=== PATIENT | female | born 1960 | race Caucasian/White ===

== ENCOUNTER 2018-03-30 14:03 | Observation (INO) ==
--- NOTE | 2018-03-30 14:08 | Emergency Department Note ---
Disposition Clinical Impression: Chest pain, Dyspnea Disposition: Admitted As Inpatient Condition: Good General Adult HPI - General Stated complaint: CP Time Seen by Provider: 03/30/18 14:07 - Related Data Home Medications Medication Instructions Recorded Confirmed ARIPiprazole [Abilify] 10 mg PO DAILY 03/30/18 03/30/18 Albuterol Sulfate [Ventolin Hfa] 2 puff IH Q4H PRN 03/30/18 03/30/18 Aspirin [Adult Aspirin] 81 mg PO DAILY 03/30/18 03/30/18 Atorvastatin [Lipitor] 40 mg PO HS 03/30/18 03/30/18 BuPROPion XL (24 HR) [Wellbutrin 300 mg PO DAILY 03/30/18 03/30/18 XL] Celecoxib [Celebrex] 200 mg PO DAILY 03/30/18 03/30/18 Cholecalciferol (Vitamin D3) 10,000 unit PO QWEEK 03/30/18 03/30/18 [Vitamin D3] Escitalopram [Lexapro] 20 mg PO DAILY 03/30/18 03/30/18 Ferrous Sulfate [Iron] 325 mg PO DAILY 03/30/18 03/30/18 Furosemide [Lasix] 40 mg PO BID 03/30/18 03/30/18 Losartan Potassium [Cozaar] 100 mg PO DAILY 03/30/18 03/30/18 Mv,Fe,Min/Lutein [A Thru Z Select 1 tab PO DAILY 03/30/18 03/30/18 Women's Tablet] Omeprazole [PriLOSEC] 40 mg PO DAILY 03/30/18 03/30/18 RX: Metformin HCl 500 mg PO BID 03/30/18 03/30/18 Spironolactone [Aldactone] 25 mg PO DAILY 03/30/18 03/30/18 Topiramate [Topamax] 25 mg PO BID 03/30/18 03/30/18 Allergies Allergy/AdvReac Type Severity Reaction Status Date / Time No Known Allergies Allergy Verified 03/30/18 15:18 Past Medical History - Past Medical History Medical history: Reports: CHF, diabetes, hyperlipidemia, hypertension Psychiatric history: Reports: no psych history - Social History Smoking Status: Former smoker Smokeless Tobacco Status: No Alcohol use: Reports: none Drug use: Reports: none Course Vital Signs Pulse Rate 79 03/30/18 14:13 Respiratory Rate 20 03/30/18 14:13 Blood Pressure 153/69 03/30/18 14:13 O2 Sat by Pulse Oximetry 98 03/30/18 14:13 Temperature 98.1 F 03/31/18 11:51 Pulse Rate 89 03/31/18 11:51 Respiratory Rate 16 03/31/18 11:51 Blood Pressure 121/74 03/31/18 11:51 O2 Sat by Pulse Oximetry 95 03/31/18 11:51 Oxygen Delivery Oxygen Delivery Room Air Medical Decision Making - Lab Data Result diagrams: 03/31/18 02:56 03/30/18 14:23 Lab Results 03/30/18 03/30/18 03/30/18 Range/Units 14:23 14:23 14:23 WBC 9.3 (4.3-11.1) K/mcL RBC 4.19 (3.82-4.97) M/mcL Hgb 13.0 (11.5-15.4) g/dL Hct 39.0 (35.3-44.9) % MCV 93.1 (83.0-100.0) fL MCH 31.0 (28.0-33.3) pg MCHC 33.3 (31.6-35.5) g/dL RDW 13.9 (11.5-14.5) % Plt Count 202 (140-400) K/mcL MPV 11.0 (9.4-12.4) fL Immature Gran % 0.6 (0-4) % Seg Neutrophils % 72.2 % Lymphocytes % 17.7 % Monocytes % 5.8 % Eosinophils % 3.2 % Basophils % 0.5 % Neutrophils # 6.7 (1.6-8.9) K/mcL Lymphocytes # 1.6 (0.6-4.6) K/mcL Monocytes # 0.5 (0.0-1.3) K/mcL Eosinophils # 0.3 (0.0-0.6) K/mcL Basophils # 0.1 (0.0-0.2) K/mcL Sodium 141 (136-145) mEq/L Potassium 3.8 (3.5-5.1) mEq/L Chloride 104 (98-107) mEq/L Carbon Dioxide 28 (23-29) mEq/L BUN 12 (6-20) mg/dL Creatinine 0.72 (0.60-1.20) mg/dL Est GFR ( Amer) > 60 (> 60) Est GFR (Non-Af Amer) > 60 (> 60) BUN/Creatinine Ratio 17 (6-26) Glucose 107 H (70-105) mg/dL Calculated Osmolality 292 (280-300) Calcium 9.4 (8.6-10.3) mg/dL Troponin I 0.05 H* (< 0.04) ng/mL B-Natriuretic Peptide 28 (Less than 100) pg/mL Attestation Statement - Attestation Attestation: I examined this patient and my medical decision-making was reviewed with the Resident Physician. I agree with the documented findings, disposition and treatment plan as described except to the extent set forth below. [id number] time provided Patient arrives by EMS complaining of chest pain that has now resolved. She appears mildly dyspneic on exam. I evaluated this patient immediately upon arrival in conjunction with the resident physician Dr. Wheeler
[2018-03-30] MEDS ORDERED: Aspirin 325 MG TABLET PO ONE (14:14)
--- NOTE | 2018-03-30 14:25 | Emergency Department Note ---
Disposition Clinical Impression: Chest pain Qualifiers: Chest pain type: unspecified Qualified Code(s): R07.9 - Chest pain, unspecified Dyspnea Qualifiers: Dyspnea type: unspecified Qualified Code(s): R06.00 - Dyspnea, unspecified Disposition: Admitted As Inpatient Condition: Good Instructions: Chest Pain (ED) Referrals: Bryan Mendez MD [Primary Care Provider] - Forms: ED Satisfaction Letter Time of Disposition: 15:50 Chest Pain HPI - General Chief Complaint: ED Chest Pain Stated Complaint: CP Time Seen by Provider: 03/30/18 14:07 Source: patient, EMS Mode of arrival: EMS Limitations: no limitations Vital Signs Reviewed: Yes Nursing Notes Reviewed: Yes - History of Present Illness HPI Narrative: Patient is a 57 year old female with past medical history of hypertension, hyperlipidemia, COPD, diabetes. She presents today due to chest pain and shortness of breath. She states that she has baseline shortness of breath with COPD but has had worsening shortness breath over the past several days. She currently only takes Ventolin inhaler as needed. Is not on any current steroid inhalers. She states that over the past few days, she has had intermittent chest discomfort, mainly with exertion that she describes as a left-sided dull ache with no radiation. Rated a 3 or 4 at its maximum intensity. Denies any other associated nausea, vomiting, fevers, diarrhea, abdominal pain. She does admit to bilateral lower extremity leg swelling with weeping but no redness or calf pain, no popliteal fossa pain. Denies any history of DVT or PE. She denies any previous history of DE or stents. She has reportedly had a stress test in the past about 2 years ago that was negative but has not had a stress test or heart catheter since. She arrived today via EMS due to chest discomfort and shortness of breath. She states that she was on her way home from chronic pain management office due to chronic back pain. Currently home, she started developing same left-sided chest pain that lasted about 20 minutes and then went away. She did not take any aspirin or nitroglycerin prior to arrival. She has not had any return of her pain since. EMS did not administer any medications. Vitals were stable upon arrival. - Related Data Home Medications Medication Instructions Recorded Confirmed ARIPiprazole [Abilify] 10 mg PO DAILY 03/30/18 03/30/18 Albuterol Sulfate [Ventolin Hfa] 2 puff IH Q4H PRN 03/30/18 03/30/18 Aspirin [Adult Aspirin] 81 mg PO DAILY 03/30/18 03/30/18 Atorvastatin [Lipitor] 40 mg PO HS 03/30/18 03/30/18 BuPROPion XL (24 HR) [Wellbutrin 300 mg PO DAILY 03/30/18 03/30/18 XL] Celecoxib [Celebrex] 200 mg PO DAILY 03/30/18 03/30/18 Cholecalciferol (Vitamin D3) 10,000 unit PO QWEEK 03/30/18 03/30/18 [Vitamin D3] Escitalopram [Lexapro] 20 mg PO DAILY 03/30/18 03/30/18 Ferrous Sulfate [Iron] 325 mg PO DAILY 03/30/18 03/30/18 Furosemide [Lasix] 40 mg PO BID 03/30/18 03/30/18 Losartan Potassium [Cozaar] 100 mg PO DAILY 03/30/18 03/30/18 Metformin HCl 500 mg PO BID 03/30/18 03/30/18 Mv,Fe,Min/Lutein [A Thru Z Select 1 tab PO DAILY 03/30/18 03/30/18 Women's Tablet] Omeprazole [PriLOSEC] 40 mg PO DAILY 03/30/18 03/30/18 Spironolactone [Aldactone] 25 mg PO DAILY 03/30/18 03/30/18 Topiramate [Topamax] 25 mg PO BID 03/30/18 03/30/18 Allergies Allergy/AdvReac Type Severity Reaction Status Date / Time No Known Allergies Allergy Verified 03/30/18 15:18 All systems ED: reviewed and negative except as stated. Constitutional: Denies: fever Cardiovascular: Reports: chest pain Respiratory: Reports: cough, dyspnea, wheezes Gastrointestinal: Denies: abdominal pain, nausea, vomiting, diarrhea Genitourinary: Denies: urgency, dysuria Neurological: Denies: headache, weakness, numbness, paresthesias Chest Pain PMH - Past Medical History Medical history: Reports: CHF, diabetes, hyperlipidemia, hypertension Psychiatric history: Reports: no psych history - Social History Smoking Status: Former smoker Alcohol use: Reports: none Drug use: Reports: none Course Course Narrative: Vitals stable. Physical exam shows lungs clear to auscultation, no reproducible chest discomfort. Abdomen soft and nontender. Lower 70s are edematous and wee ping but no signs of any cellulitis. No calf pain or popliteal fossa pain. Patient has a heart score 5 assuming that troponin will be negative. We will perform CBC, BMP, troponin, chest x-ray. EKG shows normal sinus rhythm with T- wave inversion in V2 that is present on old EKG. Otherwise no acute ST elevation or depression. 15:08 chest x-ray negative for any acute cardiopulmonary process. Labs show positive troponin 0.05. Patient was even aspirin. Again, patient has no current chest pain or shortness of breath. Heart score is 5. We will admit the patient for further care. Chest X-Ray 03/30/18 14:13 IMPRESSION: No acute process. D/ / Zachary Nance MD / Zachary Nance MD Interpreting Provider: Zachary Nance MD Vital Signs Pulse Rate 79 03/30/18 14:13 Respiratory Rate 20 03/30/18 14:13 Blood Pressure 153/69 03/30/18 14:13 O2 Sat by Pulse Oximetry 98 03/30/18 14:13 Temperature 99.0 F 03/30/18 15:20 Pulse Rate 81 03/30/18 15:20 Respiratory Rate 20 03/30/18 15:20 Blood Pressure 153/69 03/30/18 15:20 O2 Sat by Pulse Oximetry 100 03/30/18 15:20 Oxygen Delivery Oxygen Delivery Nasal Cannula Chest Pain - MDM Narrative Medical decision making narrative: Vitals stable. Physical exam shows lungs clear to auscultation, no reproducible chest discomfort. Abdomen soft and nontender. Lower 70s are edematous and weeping but no signs of any cellulitis. No calf pain or popliteal fossa pain. Patient has a heart score 5 assuming that troponin will be negative. We will perform CBC, BMP, troponin, chest x-ray. EKG shows normal sinus rhythm with T- wave inversion in V2 that is present on old EKG. Otherwise no acute ST elevation or depression. 15:08 chest x-ray negative for any acute cardiopulmonary process. Labs show positive troponin 0.05. Patient was even aspirin. Again, patient has no current chest pain or shortness of breath. Heart score is 5. We will admit the patient for further care. - Medical Records Medical records reviewed: Yes I reviewed the patient's medical records. - Lab Data Lab results reviewed: Yes I reviewed the patient's lab results. Result diagrams: 03/30/18 14:23 03/30/18 14:23 Lab Results 03/30/18 03/30/18 03/30/18 Range/Units 14:23 14:23 14:23 WBC 9.3 (4.3-11.1) K/mcL RBC 4.19 (3.82-4.97) M/mcL Hgb 13.0 (11.5-15.4) g/dL Hct 39.0 (35.3-44.9) % MCV 93.1 (83.0-100.0) fL MCH 31.0 (28.0-33.3) pg MCHC 33.3 (31.6-35.5) g/dL RDW 13.9 (11.5-14.5) % Plt Count 202 (140-400) K/mcL MPV 11.0 (9.4-12.4) fL Immature Gran % 0.6 (0-4) % Seg Neutrophils % 72.2 % Lymphocytes % 17.7 % Monocytes % 5.8 % Eosinophils % 3.2 % Basophils % 0.5 % Neutrophils # 6.7 (1.6-8.9) K/mcL Lymphocytes # 1.6 (0.6-4.6) K/mcL Monocytes # 0.5 (0.0-1.3) K/mcL Eosinophils # 0.3 (0.0-0.6) K/mcL Basophils # 0.1 (0.0-0.2) K/mcL Sodium 141 (136-145) mEq/L Potassium 3.8 (3.5-5.1) mEq/L Chloride 104 (98-107) mEq/L Carbon Dioxide 28 (23-29) mEq/L BUN 12 (6-20) mg/dL Creatinine 0.72 (0.60-1.20) mg/dL Est GFR ( Amer) > 60 (> 60) Est GFR (Non-Af Amer) > 60 (> 60) BUN/Creatinine Ratio 17 (6-26) Glucose 107 H (70-105) mg/dL Calculated Osmolality 292 (280-300) Calcium 9.4 (8.6-10.3) mg/dL Troponin I 0.05 H* (< 0.04) ng/mL B-Natriuretic Peptide 28 (Less than 100) pg/mL - Radiology Data Radiology results reviewed: Yes I reviewed the patient's radiology results. - EKG Data EKG attestation: Yes I reviewed and interpreted this EKG. EKG results narrative: 03/30/2018 at 14:16. Normal sinus rhythm. Rate 79. GA 178. QRS 94. QTC 446. No axis. No acute ST elevation or depression. T-wave inversion in V1, V2 that are present on old EKG on 09/21/2017. Heart Score - Score History: Moderately Suspicious EKG: Non Specific repolarisation Disturbance Age: 45-65 Risk Factors: Equal/Greater than 3 risk factor or history of atherosclerotic disease Troponin: Less than normal limit HEART Score Total: 5 S.B.A.R. - Tian.[email or web address] Carlos Situation: Demographics, MOA Background: Presenting Complaint, Relevant PMH, Meds, & Allergies Assessment: Vital Signs, Course and respsone to treatment, Exam Concerns, Patient/Family Expectation, Pertinant Lab Results Recommendation: Barrier(s) to disposition, Recommendation based on pending studies, treatments, or consults S.B.A.R. Report Given to: Dr. Taylor Monterroso Repor Time: 15:50
[2018-03-30 14:50] LABS: Basophils # 0.1 K/mcL (0.0-0.2); Basophils % 0.5 %; Eosinophils # 0.3 K/mcL (0.0-0.6); Eosinophils % 3.2 %; Immature Granulocytes % 0.6 % (0-4); Lymphocytes # 1.6 K/mcL (0.6-4.6); Lymphocytes % 17.7 %; Mean Corpuscular HGB Conc 33.3 g/dL (31.6-35.5); Mean Corpuscular Volume 93.1 fL (83.0-100.0); Monocytes # 0.5 K/mcL (0.0-1.3); Monocytes % 5.8 %; Neutrophils # 6.7 K/mcL (1.6-8.9); Platelet Count 202 K/mcL (140-400); Red Blood Count 4.19 M/mcL (3.82-4.97); Red Cell Distribution Width 13.9 % (11.5-14.5); Segmented Neutrophils % 72.2 %
[2018-03-30 15:01] LABS: BUN/Creatinine Ratio 17 (6-26); Blood Urea Nitrogen 12 mg/dL (6-20); Calcium 9.4 mg/dL (8.6-10.3); Carbon Dioxide 28 mEq/L (23-29); Chloride 104 mEq/L (98-107); Glucose 107 mg/dL (70-105); Osmolality,Calculated 292 (280-300); Potassium 3.8 mEq/L (3.5-5.1); Sodium 141 mEq/L (136-145); eGFR For Non-African Americans > 60 (> 60)
[2018-03-30 15:03] LABS: Troponin I 0.05 ng/mL (< 0.04)
--- NOTE | 2018-03-30 16:14 | Electrocardiograph Report ---
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
[2018-03-30] MEDS ORDERED: Acetaminophen 325 MG TABLET PO PRN (17:13)
[2018-03-30] MEDS ORDERED: Naloxone 0.4 MG/ML INJ IVP PRN (17:13)
[2018-03-30] MEDS ORDERED: Albuterol 2.5 MG/3 ML NEBULIZER IH PRN (17:13)
[2018-03-30] MEDS ORDERED: 0.9 % Sodium Chloride 1,000 ML IVC SCH (17:15)
--- NOTE | 2018-03-30 17:18 | Internal Med History&Physical ---
Date of Encounter: 03/30/18 Time of Encounter: 17:17 Internal Medicine - H&P: HPI Chief complaint: SOB and CP Admitted From: Home Plans for Post Hospital Care: Home History of present illness: Ms. Díaz is a 57 year old female with past medical history of COPD, morbid obesity, sleep apnea, edema, who presents with progressive SOB and ocugh. Pt states she has been progressively SOB for weeks to months. States she was at urgent care at [place] last week and was mnaaged and sent home to f/u out pt with her PCP. Pt states she is on lasix and Spirinolactone and had been complaint on both medications She also states she had been complaint with QHS BiPAP which she uses with oxygen. She does report having low grade fever at home. Denies having any sick contacts. Sister at bedside states her legs have been draining fluid form being so swollen. Pt admits to having orthopnea. She denies prior hx of AK or CAd that she is aware of but states she had been told once before that she has CHF. In ED WBC WNL. D dimer 960. BMP wnl. Troponin 0.05. EKG shows Chest x ray shows no acute distress. Past Med Surg Social Fam HX - Past Medical History Medical history: CHF, diabetes, hyperlipidemia, hypertension Psychiatric history: no psych history - Past Surgical History Additional surgical history: left arm - Social History Smoking Status: Former smoker Smokeless Tobacco Status: No Alcohol use: none Drug use: none - Family History Mother Living Status: Cause of : AK Hx Family Cardiac Disorders: Yes (AK, CHF) Hx Family Cancer: Yes (Colon, breast) Hx Family Endocrine Disorder: Yes (Diabetes) Hx Family Medical Disorders: Yes (HTN) Father Living Status: Cause of : liver cancer Hx Family Cancer: Yes (liver) Hx Family Endocrine Disorder: Yes (Diabetes) Hx Family Medical Disorders: Yes (HTN) Internal Medicine - H&P: Meds ARIPiprazole [Abilify] 10 mg PO DAILY 03/30/18 [History] Albuterol Sulfate [Ventolin Hfa] 2 puff IH Q4H PRN 03/30/18 [History] Aspirin [Adult Aspirin] 81 mg PO DAILY 03/30/18 [History] Atorvastatin [Lipitor] 40 mg PO HS 03/30/18 [History] BuPROPion XL (24 HR) [Wellbutrin XL] 300 mg PO DAILY 03/30/18 [History] Celecoxib [Celebrex] 200 mg PO DAILY 03/30/18 [History] Cholecalciferol (Vitamin D3) [Vitamin D3] 10,000 unit PO QWEEK 03/30/18 [History] Escitalopram [Lexapro] 20 mg PO DAILY 03/30/18 [History] Ferrous Sulfate [Iron] 325 mg PO DAILY 03/30/18 [History] Furosemide [Lasix] 40 mg PO BID 03/30/18 [History] Losartan Potassium [Cozaar] 100 mg PO DAILY 03/30/18 [History] Metformin HCl 500 mg PO BID 03/30/18 [History] Mv,Fe,Min/Lutein [A Thru Z Select Women's Tablet] 1 tab PO DAILY 03/30/18 [History] Omeprazole [PriLOSEC] 40 mg PO DAILY 03/30/18 [History] Spironolactone [Aldactone] 25 mg PO DAILY 03/30/18 [History] Topiramate [Topamax] 25 mg PO BID 03/30/18 [History] Allergy/AdvReac Type Severity Reaction Status Date / Time No Known Allergies Allergy Verified 03/30/18 15:18 All Systems PM: A 10-system review of systems was performed and is negative for pertinent findings except as documented above in the HPI. - Constitutional Vitals: Temp Pulse Resp BP Pulse Ox 99.0 F 81 18 130/68 100 03/30/18 15:20 03/30/18 15:20 03/30/18 16:16 03/30/18 16:16 03/30/18 15:20 General appearance: Present: A&O X 3, morbidly obese Exam: mild distress. - Head Head exam: Present: atraumatic, normocephalic - Eye Eye exam: Present: PERRL, conjuntiva pink, sclera anicteric Pupils: Present: PERRL - Neck Neck exam general surgery: Present: supple, trachea midline. Absent: lymphadenopathy - Respiratory Respiratory exam: Present: CTAB. Absent: accessory muscle use, rales, rhonchi, wheezes - Cardiovascular Cardiovascular exam: Present: RRR, +S1, +S2. Absent: diastolic murmur, gallop, rubs, systolic murmur - GI/Abdominal GI/Abdominal exam: Present: normal bowel sounds, soft, no peritoneal signs. Absent: distended, tenderness - Extremities Exam Extremities exam: Present: pedal edema, warm, radial pulses palpable and symmetrical. Absent: calf tenderness, cyanotic - Neurological Exam Neurological exam: Present: CN II-XII intact, oriented X3, no focal deficits. Absent: pronater drift, facial droop, speech deficit - Skin Skin exam: Present: dry, intact Internal Med - H&P Results - Labs CBC & Chem 7: 03/30/18 14:23 03/30/18 14:23 Labs: Short CBC 03/30/18 Range/Units 14:23 WBC 9.3 (4.3-11.1) K/mcL Hgb 13.0 (11.5-15.4) g/dL Hct 39.0 (35.3-44.9) % Plt Count 202 (140-400) K/mcL Neutrophils # 6.7 (1.6-8.9) K/mcL BMP 03/30/18 14:23 Sodium 141 Potassium 3.8 Chloride 104 Carbon Dioxide 28 BUN 12 Creatinine 0.72 Glucose 107 H Calcium 9.4 Cardiac Enzymes 03/30/18 Range/Units 14:23 Troponin I 0.05 H* (< 0.04) ng/mL - Impressions ITS Impressions Chest X-Ray 03/30/18 14:13 IMPRESSION: No acute process. D/ / Zachary Nance MD / Zachary Nance MD Interpreting Provider: Zachary Nance MD - Assessment and plan (1) Volume overload Current Visit: Yes Status: Acute Assessment and plan: Hypervolemia posisbly due to CHF, ? pulmmonary HTN. Will check echo in am. Will place on Lasix 40 mg IV BID. Will check daily weights and strict I and O's. Will place on fluid restriction. Qualifiers: Qualified Code(s): E87.70 - Fluid overload, unspecified (2) Chest pain Current Visit: Yes Status: Acute Assessment and plan: Pt states FLOR was her main complaint and denies having any significant chest. In fact she reports chest discomfort as mild. Will cycle pt's troponin. Will place on ASA daily and nitro SL prn. Qualifiers: Chest pain type: unspecified Qualified Code(s): R07.9 - Chest pain, unspecified (3) Morbid (severe) obesity due to excess calories Current Visit: Yes Status: Acute Assessment and plan: Weight loss such as diet modification and exercise recommended (4) Former smoker Current Visit: Yes Status: Acute Assessment and plan: Pt states she quit 4 years ago. (5) COPD (chronic obstructive pulmonary disease) Current Visit: Yes Status: Acute Assessment and plan: Will place on albuterol scheduled and prn. Will place on steroids. Qualifiers: Qualified Code(s): J44.9 - Chronic obstructive pulmonary disease, unspecified - Time Spent With Patient Total time spent is greater than 50% in coordination of care (as documented) at patient's floor/unit and/or counseling patient: 25 - 35 minutes
[2018-03-30] MEDS: MethylPREDNISolone 40 MG/ML VIAL IVP SCH (18:24)
[2018-03-30] MEDS ORDERED: Ondansetron 4 MG/2 ML VIAL IVP PRN (19:35)
[2018-03-30] MEDS ORDERED: Nitroglycerin 0.4 MG TAB.SUBL SL PRN (19:44)
[2018-03-30] MEDS: Furosemide 40 MG/4 ML VIAL IVP SCH (21:16)
[2018-03-30] MEDS: *HR* Metformin 500 MG TABLET PO SCH (21:16)
[2018-03-30] MEDS: Cholecalciferol (D-3) 1,000 UNIT TABLET PO SCH (21:16)
[2018-03-30] MEDS: Topiramate 25 MG TABLET PO SCH (21:16)
[2018-03-30] MEDS: Ipratropium/Albuterol Neb 3 ML IH SCH (22:59)
[2018-03-31 03:33] LABS: Basophils % 0.2 %; Eosinophils % 0.1 %; Hematocrit 42.3 % (35.3-44.9); Hemoglobin 13.9 g/dL (11.5-15.4); Immature Granulocytes % 1.9 % (0-4); Lymphocytes # 0.8 K/mcL (0.6-4.6); Lymphocytes % 8.2 %; Mean Corpuscular HGB Conc 32.9 g/dL (31.6-35.5); Mean Corpuscular Hemoglobin 30.7 pg (28.0-33.3); Mean Corpuscular Volume 93.4 fL (83.0-100.0); Mean Platelet Volume 11.2 fL (9.4-12.4); Monocytes # 0.1 K/mcL (0.0-1.3); Monocytes % 1.2 %; Neutrophils # 8.1 K/mcL (1.6-8.9); Platelet Count 223 K/mcL (140-400); Red Blood Count 4.53 M/mcL (3.82-4.97); Red Cell Distribution Width 13.7 % (11.5-14.5); Segmented Neutrophils % 88.4 %
[2018-03-31] MEDS: Ipratropium/Albuterol Neb 3 ML IH SCH ×4 (03:44→23:26)
[2018-03-31] MEDS: *HR* Enoxaparin 40 MG/0.4 ML SYRINGE SQ SCH (05:22)
[2018-03-31] MEDS: MethylPREDNISolone 40 MG/ML VIAL IVP SCH ×2 (05:22→17:59)
[2018-03-31] MEDS: *HR* Metformin 500 MG TABLET PO SCH ×2 (08:16→17:58)
[2018-03-31] MEDS: Furosemide 40 MG/4 ML VIAL IVP SCH ×2 (08:16→17:59)
[2018-03-31] MEDS: Spironolactone 25 MG TABLET PO SCH (08:17)
[2018-03-31] MEDS: Aspirin 81 MG TAB.CHEW PO SCH (08:17)
[2018-03-31] MEDS: ARIPiprazole 10 MG TABLET PO SCH (08:17)
[2018-03-31] MEDS: Celecoxib 200 MG CAPSULE PO SCH (08:18)
[2018-03-31] MEDS: BuPROPion XL (24 HR) 150 MG TABLET PO SCH (08:19)
[2018-03-31] MEDS: Nicotine 7 MG PATCH.TD24 TD SCH (08:19)
[2018-03-31] MEDS: Topiramate 25 MG TABLET PO SCH ×2 (08:19→22:02)
[2018-03-31] MEDS: Cholecalciferol (D-3) 1,000 UNIT TABLET PO SCH (08:19)
[2018-03-31] MEDS ORDERED: Azithromycin 250 MG TABLET PO SCH (09:00)
--- NOTE | 2018-03-31 18:55 | Internal Med Progress Note ---
Hospitalist Progress Note - Encounter Date of Encounter: 03/31/18 Time of Encounter: 18:53 - Subjective Interval History: Pt states breathing better today. She denies chest pain. She is afebrile. She reports occasional cough. Positive LE edema. - Exam Vitals: Temp Pulse Resp BP Pulse Ox 98.7 F 92 16 118/71 97 03/31/18 16:17 03/31/18 16:17 03/31/18 16:17 03/31/18 16:17 03/31/18 16:17 Exam: General appearance: Present: A&O X 3, morbidly obese Exam: mild distress. - Head Head exam: Present: atraumatic, normocephalic - Eye Eye exam: Present: PERRL, conjuntiva pink, sclera anicteric Pupils: Present: PERRL - Neck Neck exam general surgery: Present: supple, trachea midline. Absent: lymphadenopathy - Respiratory Respiratory exam: Present: CTAB. Absent: accessory muscle use, rales, rhonchi, wheezes - Cardiovascular Cardiovascular exam: Present: RRR, +S1, +S2. Absent: diastolic murmur, gallop, rubs, systolic murmur - GI/Abdominal GI/Abdominal exam: Present: normal bowel sounds, soft, no peritoneal signs. Absent: distended, tenderness - Extremities Exam Extremities exam: Present: pedal edema, warm, radial pulses palpable and symmetrical. Absent: calf tenderness, cyanotic - Neurological Exam Neurological exam: Present: CN II-XII intact, oriented X3, no focal deficits. Absent: pronater drift, facial droop, speech deficit - Skin Skin exam: Present: dry, intact - Assessment and Plan (1) Volume overload Current Visit: Yes Status: Acute Assessment and Plan: Hypervolemia possibly due to CHF, ? pulmmonary HTN. Echo Ordered but still pending. Will place on Lasix 40 mg IV BID. Will check daily weights and strict I and O's. Will place on fluid restriction. [facility]ed last night 03/30/2018 (2) Chest pain Current Visit: Yes Status: Acute Assessment and Plan: Pt states FLOR was her main complaint and denies having any significant chest. In fact she reports chest discomfort as mild. Troponin neg x 3. Will place on ASA daily and nitro SL prn. (3) Morbid (severe) obesity due to excess calories Current Visit: Yes Status: Acute Assessment and Plan: Weight loss such as diet modification and exercise recommended (4) Former smoker Current Visit: Yes Status: Acute Assessment and Plan: Pt states she quit 4 years ago. (5) COPD (chronic obstructive pulmonary disease) Current Visit: Yes Status: Acute Assessment and Plan: Will place on albuterol scheduled and prn. Will place on steroids. DVT Prophylaxis: Lovenox - Summary of Assessment and Plan Summary of Assessment and Plan: History of present illness: Dr. Villarreal Ms. Díaz is a 57 year old female with past medical history of COPD, morbid obesity, sleep apnea, edema, who presents with progressive SOB and ocugh. Pt states she has been progressively SOB for weeks to months. States she was at urgent care at [place] last week and was mnaaged and sent home to f/u out pt with her PCP. Pt states she is on lasix and Spirinolactone and had been complaint on both medications She also states she had been complaint with QHS BiPAP which she uses with oxygen. She does report having low grade fever at home. Denies having any sick contacts. Sister at bedside states her legs have been draining fluid form being so swollen. Pt admits to having orthopnea. She denies prior hx of [place] or CAd that she is aware of but states she had been told once before that she has CHF. In ED WBC WNL. D dimer 960. BMP wnl. Troponin 0.05. EKG shows Chest x ray shows no acute distress. - Time Spent with Patient Total time spent is greater than 50% in coordination of care (as documented) at patient's floor/unit and/or counseling patient: less than 15 minutes Plan of Care Discussed with: patient Internal Medicine: Result - Labs CBC & Chem 7: 03/31/18 02:56 03/30/18 14:23 Labs: Short CBC 03/31/18 Range/Units 02:56 WBC 9.2 (4.3-11.1) K/mcL Hgb 13.9 (11.5-15.4) g/dL Hct 42.3 (35.3-44.9) % Plt Count 223 (140-400) K/mcL Neutrophils # 8.1 (1.6-8.9) K/mcL Cardiac Enzymes 03/30/18 03/31/18 03/31/18 Range/Units 20:11 02:56 08:38 Troponin I 0.03 0.03 0.03 (< 0.04) ng/mL - ABG Interpretation ABG results: PT/INR, D-dimer D-Dimer 960 ng/mLFEU (0-500) H 03/30/18 17:25 Consult Discharge Plan - Plan Referrals: Bryan Mendez MD [Primary Care Provider] - 04/08/18 1:30 pm () (1) Volume overload Qualifiers: Qualified Code(s): E87.70 - Fluid overload, unspecified (2) Chest pain Qualifiers: Chest pain type: unspecified Qualified Code(s): R07.9 - Chest pain, unspecified (5) COPD (chronic obstructive pulmonary disease) Qualifiers: Qualified Code(s): J44.9 - Chronic obstructive pulmonary disease, unspecified
[2018-03-31 22:30] LABS: Adenovirus Not Detected (Not Detect); Bordetella Pertussis Not Detected (Not Detect); Chlamydophila pneumoniae Not Detected (Not Detect); Coronavirus 229E Not Detected (Not Detect); Coronavirus HKU1 Not Detected (Not Detect); Coronavirus NL63 Not Detected (Not Detect); Coronavirus OC43 Not Detected (Not Detect); Human Metapneumovirus Not Detected (Not Detect); Human Rhinovirus/Enterovirus Not Detected (Not Detect); Influenza A Subtype 2009 H1 Not Detected (Not Detect); Influenza A Untypeable Not Detected (Not Detect); Influenza B Not Detected (Not Detect); Mycoplasma pneumoniae Not Detected (Not Detect); Parainfluenza Virus 1 Not Detected (Not Detect); Parainfluenza Virus 2 Not Detected (Not Detect); Parainfluenza Virus 3 Not Detected (Not Detect); Parainfluenza Virus 4 Not Detected (Not Detect); Respiratory Syncytial Virus Not Detected (Not Detect)
[2018-03-31] MEDS ORDERED: Perflutren Lipid Microsphere 1.3 ML in 0.9 % Sodium Chloride 8.7 ML IVP ONE (22:55)
[2018-04-01] MEDS: Ipratropium/Albuterol Neb 3 ML IH SCH ×4 (04:22→22:14)
[2018-04-01] MEDS: *HR* Enoxaparin 40 MG/0.4 ML SYRINGE SQ SCH (05:45)
[2018-04-01] MEDS: MethylPREDNISolone 40 MG/ML VIAL IVP SCH ×2 (05:45→17:54)
[2018-04-01] MEDS: Nicotine 7 MG PATCH.TD24 TD SCH (08:16)
[2018-04-01] MEDS: Furosemide 40 MG/4 ML VIAL IVP SCH ×2 (08:21→17:54)
[2018-04-01] MEDS: ARIPiprazole 10 MG TABLET PO SCH (08:22)
[2018-04-01] MEDS: Aspirin 81 MG TAB.CHEW PO SCH (08:22)
[2018-04-01] MEDS: BuPROPion XL (24 HR) 150 MG TABLET PO SCH (08:22)
[2018-04-01] MEDS: Spironolactone 25 MG TABLET PO SCH (08:22)
[2018-04-01] MEDS: Topiramate 25 MG TABLET PO SCH ×2 (08:22→20:58)
[2018-04-01] MEDS: Cholecalciferol (D-3) 1,000 UNIT TABLET PO SCH (08:22)
[2018-04-01] MEDS: Celecoxib 200 MG CAPSULE PO SCH (08:22)
[2018-04-01] MEDS: *HR* Metformin 500 MG TABLET PO SCH ×2 (08:23→17:53)
--- NOTE | 2018-04-01 17:16 | Internal Med Progress Note ---
Hospitalist Progress Note - Encounter Date of Encounter: 04/01/18 Time of Encounter: 17:14 - Subjective Interval History: Pt states breathing better today. She denies chest pain. She is afebrile. She reports occasional cough. Positive LE edema which is slowly improving. Sister at bedside states she is concerned about pt's current mental states and living condition. Sister states pt is depressed all the time and has been since their mother . Sister states that pt is a hoarder and has had [facility] care services set up at home. Sister wants to ensure she continue with [facility] services at discharge. SW already aware and states all services are still currently in place for her. - Exam Vitals: Temp Pulse Resp BP Pulse Ox 99.0 F 84 16 130/76 95 04/01/18 15:49 04/01/18 15:49 04/01/18 15:49 04/01/18 15:49 04/01/18 15:49 Exam: General appearance: Present: A&O X 3, morbidly obese Exam: mild distress. - Head Head exam: Present: atraumatic, normocephalic - Eye Eye exam: Present: PERRL, conjuntiva pink, sclera anicteric Pupils: Present: PERRL - Neck Neck exam general surgery: Present: supple, trachea midline. Absent: lymphadenopathy - Respiratory Respiratory exam: Present: Distant breath sounds and decreased B/L. Absent: accessory muscle use, rales, rhonchi, wheezes - Cardiovascular Cardiovascular exam: Present: RRR, +S1, +S2. Absent: diastolic murmur, gallop, rubs, systolic murmur - GI/Abdominal GI/Abdominal exam: Present: normal bowel sounds, soft, no peritoneal signs. Absent: distended, tenderness - Extremities Exam Extremities exam: Present: pedal edema, warm, radial pulses palpable and symmetrical. Absent: calf tenderness, cyanotic - Neurological Exam Neurological exam: Present: CN II-XII intact, oriented X3, no focal deficits. Absent: pronater drift, facial droop, speech deficit - Skin Skin exam: Present: dry, intact - Assessment and Plan (1) Acute and chronic respiratory failure Current Visit: Yes Status: Acute Assessment and Plan: Possibly due to volume overload of unclear etiology. Significant LE edema which sister claimed was draining fluid from B/L LE. Pt was also requiring oxygen more frequently but only prescribed at night with BiPAP. Pt slowly improving on IV Lasix but still some notable edema on exam. Continue with supplemental oxygen, BiPAP QHS prn, respiratory regimen, and Lasix. Echo reviewed but unrevealing EV/EV echocardiogram w enhance Impressions: LVEF 60%. Normal LV chamber size. Despite the use of Definity contrast, not all LV segments were well visualized. Grossly, LV function appears normal. Mild concentric left ventricular hypertrophy. Mild diastolic dysfunction of the left ventricle. Right ventricle was not well visualized. Grossly, it is normal in size and function. Mild left ventricular diastolic dysfunction. Unable to estimate RVSP due to lack of TR jet. No significant valvular dysfunction. (2) Volume overload Current Visit: Yes Status: Acute Assessment and Plan: Hypervolemia eitiology unclear. DDX includes CHF but echo unrevealing. ? pulmmonary HTN but unable to determine RVSP due to body habitus and is subop timal On Lasix 40 mg IV BID which pt states has been helping. Checking daily weights and strict I and O's. On fluid restriction. Echo EV/EV echocardiogram w enhance Impressions: LVEF 60%. Normal LV chamber size. Despite the use of Definity contrast, not all LV segments were well visualized. Grossly, LV function appears normal. Mild concentric left ventricular hypertrophy. Mild diastolic dysfunction of the left ventricle. Right ventricle was not well visualized. Grossly, it is normal in size and function. Mild left ventricular diastolic dysfunction. Unable to estimate RVSP due to lack of TR jet. No significant valvular dysfunction. (3) Chest pain Current Visit: Yes Status: Acute Assessment and Plan: Pt states FLOR was her main complaint and denies having any significant chest. In fact she reported chest discomfort as mild. Troponin neg x 3. On ASA daily and nitro SL prn. Echo 04/01/2018 EV/EV echocardiogram w enhance Impressions: LVEF 60%. Normal LV chamber size. Despite the use of Definity contrast, not all LV segments were well visualized. Grossly, LV function appears normal. Mild concentric left ventricular hypertrophy. Mild diastolic dysfunction of the left ventricle. Right ventricle was not well visualized. Grossly, it is normal in size and function. Mild left ventricular diastolic dysfunction. Unable to estimate RVSP due to lack of TR jet. No significant valvular dysfunction. (4) Morbid (severe) obesity due to excess calories Current Visit: Yes Status: Acute Assessment and Plan: Weight loss such as diet modification and exercise recommended (5) Former smoker Current Visit: Yes Status: Acute Assessment and Plan: Pt states she quit 4 years ago. (6) COPD (chronic obstructive pulmonary disease) Current Visit: Yes Status: Acute Assessment and Plan: On albuterol scheduled and prn. On steroids. DVT Prophylaxis: Lovenox - Summary of Assessment and Plan Summary of Assessment and Plan: History of present illness: Dr. Villarreal Ms. Díaz is a 57 year old female with past medical history of COPD, morbid ob esity, sleep apnea, edema, who presents with progressive SOB and ocugh. Pt states she has been progressively SOB for weeks to months. States she was at urgent care at [place] last week and was mnaaged and sent home to f/u out pt with her PCP. Pt states she is on lasix and Spirinolactone and had been complaint on both medications She also states she had been complaint with [facility] BiPAP which she uses with oxygen. She does report having low grade fever at home. Denies having any sick contacts. Sister at bedside states her legs have been draining fluid form being so swollen. Pt admits to having orthopnea. She denies prior hx of WI or CAd that she is aware of but states she had been told once before that she has CHF. In ED WBC WNL. D dimer 960. BMP wnl. Troponin 0.05. EKG shows Chest x ray shows no acute distress. - Time Spent with Patient Total time spent is greater than 50% in coordination of care (as documented) at patient's floor/unit and/or counseling patient: less than 15 minutes Internal Medicine: Result - Labs CBC & Chem 7: 03/31/18 02:56 03/30/18 14:23 - ABG Interpretation ABG results: PT/INR, D-dimer D-Dimer 960 ng/mLFEU (0-500) H 03/30/18 17:25 - Impressions Impressions Echocardiogram 03/31/18 19:33 Impressions: LVEF 60%. Normal LV chamber size. Despite the use of Definity contrast, not all LV segments were well visualized. Grossly, LV function appears normal. Mild concentric left ventricular hypertrophy. Mild diastolic dysfunction of the left ventricle. Right ventricle was not well visualized. Grossly, it is normal in size and function. Mild left ventricular diastolic dysfunction. Unable to estimate RVSP due to lack of TR jet. No significant valvular dysfunction. Findings: Study Quality * Technically sub-optimal due to poor echocardiographic windows. ECG Findings * Normal sinus rhythm. Left Ventricle * LVEF 60%. * Normal LV chamber size. * Mild concentric left ventricular hypertrophy. * Despite the use of Definity contrast, not all LV segments were well visualized. Grossly, LV function appears normal. * Mild left ventricular diastolic dysfunction. Right Ventricle * Right ventricle was not well visualized. Grossly, it is normal in size and function. Left Atrium * Normal left atrial size. Right Atrium * Normal right atrial size. Aortic Valve * Aortic valve not well visualized. * No aortic regurgitation. * No aortic stenosis. Mitral Valve * Normal mitral valve structure and function. * No mitral regurgitation. * No mitral stenosis. Tricuspid Valve * No tricuspid regurgitation. * Normal tricuspid valve structure. * Unable to estimate RVSP due to lack of TR jet. Pulmonic Valve * Pulmonic valve not well visualized. Grossly, it appears normal in structure. * No pulmonic regurgitation. Aorta * Normally sized aortic root. Pericardium * The pericardium appears normal. IVC * The IVC is not well evaluated. Pulmonary Artery * Pulmonary artery not well visualized. Consult Discharge Plan - Plan Referrals: Bryan Mendez MD [Primary Care Provider] - 04/08/18 1:30 pm () (2) Volume overload Qualifiers: Qualified Code(s): E87.70 - Fluid overload, unspecified (3) Chest pain Qualifiers: Chest pain type: unspecified Qualified Code(s): R07.9 - Chest pain, unspecified (6) COPD (chronic obstructive pulmonary disease) Qualifiers: Qualified Code(s): J44.9 - Chronic obstructive pulmonary disease, unspecified
--- NOTE | 2018-04-01 17:21 | Electrocardiograph Report ---
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
[2018-04-02] MEDS: Ipratropium/Albuterol Neb 3 ML IH SCH ×4 (03:48→22:38)
[2018-04-02] MEDS: *HR* Enoxaparin 40 MG/0.4 ML SYRINGE SQ SCH (05:57)
[2018-04-02] MEDS: *HR* Metformin 500 MG TABLET PO SCH ×2 (10:02→17:31)
[2018-04-02] MEDS: Aspirin 81 MG TAB.CHEW PO SCH (10:02)
[2018-04-02] MEDS: Spironolactone 25 MG TABLET PO SCH (10:02)
[2018-04-02] MEDS: BuPROPion XL (24 HR) 150 MG TABLET PO SCH (10:02)
[2018-04-02] MEDS: Furosemide 40 MG/4 ML VIAL IVP SCH ×2 (10:02→17:31)
[2018-04-02] MEDS: Topiramate 25 MG TABLET PO SCH ×2 (10:03→20:22)
[2018-04-02] MEDS: Celecoxib 200 MG CAPSULE PO SCH (10:03)
[2018-04-02] MEDS: predniSONE 20 MG TABLET PO SCH (10:03)
[2018-04-02] MEDS: Cholecalciferol (D-3) 1,000 UNIT TABLET PO SCH (10:03)
[2018-04-02] MEDS: ARIPiprazole 10 MG TABLET PO SCH (10:03)
--- NOTE | 2018-04-02 10:04 | Internal Med Progress Note ---
<Oleksandr Beth - Last Filed: 04/02/18 15:41> Hospitalist Progress Note - Encounter Date of Encounter: 04/02/18 Time of Encounter: 10:30 - Subjective Interval History: Patient was examined at the bedside. No acute distress. No chest pain, palpitations or shortness of breath appreciated. She continues to be on spironolactone 25 mg and Lasix 40 mg for her pedal edema. No evidence of congestive heart failure on echocardiogram as far as EF is concerned . Her belly does look a little distended, edematous in her extremities . Denies dysuria, hematuria or any suprapubic tenderness. - Exam Vitals: Temp Pulse Resp BP Pulse Ox 98.0 F 70 16 133/74 98 04/02/18 07:21 04/02/18 07:21 04/02/18 07:21 04/02/18 07:21 04/02/18 07:21 Exam: General appearance: Present: A&O X 3, morbidly obese Exam: mild distress. - Head Head exam: Present: atraumatic, normocephalic - Eye Eye exam: Present: PERRL, conjuntiva pink, sclera anicteric Pupils: Present: PERRL - Neck Neck exam general surgery: Present: supple, trachea midline. Absent: lymphadenopathy - Respiratory Respiratory exam: Present: Distant breath sounds and decreased B/L. Absent: accessory muscle use, rales, rhonchi, wheezes - Cardiovascular Cardiovascular exam: Present: RRR, +S1, +S2. Absent: diastolic murmur, gallop, rubs, systolic murmur - GI/Abdominal GI/Abdominal exam: Present: normal bowel sounds, soft, no peritoneal signs. Absent: distended, tenderness - Extremities Exam Extremities exam: Present: pedal edema, warm, radial pulses palpable and symmetrical. Absent: calf tenderness, cyanotic - Neurological Exam Neurological exam: Present: CN II-XII intact, oriented X3, no focal deficits. Absent: pronater drift, facial droop, speech deficit - Skin Skin exam: Present: dry, intact - Assessment and Plan (1) Volume overload Current Visit: Yes Status: Acute Assessment and Plan: - Etiology unclear for her hypervolemia . Highly unlikely this is CHF because patient's echo was unremarkable without any evidence for any decrease in LVEF, no evidence of any valvular abnormalities, echo did show mild diastolic dysfunction of the left ventricle but that does not explain the progressively increasing weight for the past 1 year despite being on Lasix and Aldactone for years. Right ventricle was not visualized , therefore cannot rule out the possibility of right heart failure. It is unclear to me if patient has any evidence of pulmonary hypertension because RVSP was not determined secondary to body habitus, however, EKG did show evidence of left atrial enlargement which could potentially suggest pulmonary venous hypertension -Patient serum albumin is normal limits (4.7) - Patient is edematous with +2 pitting edema, no evidence of hydrostatic pulmonary edema on chest x-ray. - She is currently on 40 IV Lasix and Aldactone. - UA pending to rule out proteinurea , hepatic panel pending to rule out evidence of liver dysfunction. . (2) Chest pain Current Visit: Yes Status: Acute Assessment and Plan: - Patient was admitted to the hospital for chest pain. Initial workup was negative for any ST-T changes, EKG from 03/31 revealed evidence of left atrial enlargement which could potentially suggest pulmonary venous hypertension, considering the fact that patient has COPD and is a former smoker. Serial tr oponin was negative. - No Hx of any prior cardiac vascular problems no evidence of MD, stents - patient endorses no evidence of chest pain - currently on ASA , Nitro SL PRN (3) COPD (chronic obstructive pulmonary disease) Current Visit: Yes Status: Acute Assessment and Plan: - Patient does not appear to have any exacerbation of COPD. She endorses no worsening cough, productive sputum -X-ray was negative for any pulmonary infiltrates. - On albuterol scheduled and prn. -No indication for steroids at this time and can be discontinued. (4) Former smoker Current Visit: Yes Status: Acute Assessment and Plan: Pt states she quit 4 years ago. (5) Morbid (severe) obesity due to excess calories Current Visit: Yes Status: Acute Assessment and Plan: She was admitted with a BMI of 49.2. Her sister endorses that she has no significant amount of weight in the last one year . - Weight loss such as diet modification and exercise recommended (6) Depression Current Visit: Yes Status: Acute Assessment and Plan: - Patient has a history of depression. Takes Abilify and Lexapro as home meds. -Patient's sister endroses that her depression symptoms have exacerbated since the demise of her mom a year ago. - endorses no change in appetite, endorses no suicidal or homicidal ideation.Sleeps well on her BiPAP, - TSH, free T4, B12 pending. DVT Prophylaxis: Lovenox - Time Spent with Patient Total time spent is greater than 50% in coordination of care (as documented) at patient's floor/unit and/or counseling patient: Internal Medicine: Result - Labs CBC & Chem 7: 03/31/18 02:56 03/30/18 14:23 - ABG Interpretation ABG results: PT/INR, D-dimer D-Dimer 960 ng/mLFEU (0-500) H 03/30/18 17:25 - Impressions Impressions Echocardiogram 03/31/18 19:33 Impressions: LVEF 60%. Normal LV chamber size. Despite the use of Definity contrast, not all LV segments were well visualized. Grossly, LV function appears normal. Mild concentric left ventricular hypertrophy. Mild diastolic dysfunction of the left ventricle. Right ventricle was not well visualized. Grossly, it is normal in size and function. Mild left ventricular diastolic dysfunction. Unable to estimate RVSP due to lack of TR jet. No significant valvular dysfunction. Findings: Study Quality * Technically sub-optimal due to poor echocardiographic windows. ECG Findings * Normal sinus rhythm. Left Ventricle * LVEF 60%. * Normal LV chamber size. * Mild concentric left ventricular hypertrophy. * Despite the use of Definity contrast, not all LV segments were well visualized. Grossly, LV function appears normal. * Mild left ventricular diastolic dysfunction. Right Ventricle * Right ventricle was not well visualized. Grossly, it is normal in size and function. Left Atrium * Normal left atrial size. Right Atrium * Normal right atrial size. Aortic Valve * Aortic valve not well visualized. * No aortic regurgitation. * No aortic stenosis. Mitral Valve * Normal mitral valve structure and function. * No mitral regurgitation. * No mitral stenosis. Tricuspid Valve * No tricuspid regurgitation. * Normal tricuspid valve structure. * Unable to estimate RVSP due to lack of TR jet. Pulmonic Valve * Pulmonic valve not well visualized. Grossly, it appears normal in structure. * No pulmonic regurgitation. Aorta * Normally sized aortic root. Pericardium * The pericardium appears normal. IVC * The IVC is not well evaluated. Pulmonary Artery * Pulmonary artery not well visualized. Consult Discharge Plan - Plan Referrals: Bryan Mendez MD [Primary Care Provider] - 11/16/18 1:30 pm () <Lukas Landers - Last Filed: 04/02/18 17:51> Hospitalist Progress Note - Encounter Date of Encounter: 04/02/18 - Exam Vitals: Temp Pulse Resp BP Pulse Ox 98.6 F 79 15 120/81 95 04/02/18 14:55 04/02/18 14:55 04/02/18 15:55 04/02/18 14:55 04/02/18 15:55 - Assessment and Plan (1) Chest pain Current Visit: Yes Status: Acute (2) Volume overload Current Visit: Yes Status: Acute (3) Morbid (severe) obesity due to excess calories Current Visit: Yes Status: Acute (4) Former smoker Current Visit: Yes Status: Chronic (5) COPD (chronic obstructive pulmonary disease) Current Visit: Yes Status: Acute (6) Depression Current Visit: Yes Status: Acute - Time Spent with Patient Total time spent is greater than 50% in coordination of care (as documented) at patient's floor/unit and/or counseling patient: Plan of Care Discussed with: family Internal Medicine: Result - Labs CBC & Chem 7: 03/31/18 02:56 03/30/18 14:23 Labs: Liver Function 04/02/18 04/02/18 Range/Units 12:02 12:02 Total Bilirubin 0.5 (0.3-1.0) mg/dL Direct Bilirubin 0.1 (0.0-0.2) mg/dL AST < 3 L (13-39) Units/L ALT 61 H (7-52) Units/L Alkaline Phosphatase 96 (34-104) Units/L Albumin 4.7 4.7 (3.5-5.7) g/dL Urine 04/02/18 Range/Units 14:30 Urine Color Yellow (Yellow) Urine Clarity Clear (Clear) Urine pH 6.0 (5.0-8.0) pH Units Ur Specific [place] 1.009 L (1.010-1.025) Urine Protein Negative (Neg-Trace) mg/dL Urine Glucose (UA) Normal (Normal) mg/dL - ABG Interpretation ABG results: PT/INR, D-dimer D-Dimer 960 ng/mLFEU (0-500) H 03/30/18 17:25 - Attending Attestation I examined this patient and my medical decision-making was reviewed with the Resident Physician on 04/02/18. I agree with the documented findings, disposition and treatment plan as described except to the extent set forth below. Ms Díaz is currently admitted for volume overload. She remains moderate to high risk due to potential for worsening clinical status. Ms Díaz is up in room. She is still quite edematous. No fever or chills. No CP or SOB. No GI issues. Exam alert Comfortable Mucus membranes dry Heart reg and not tachy No wheeze or rales Abd soft Edema present bilateral lower extremities I/P 1. Volume overload - Echo does not show L side failure. Consistent more with R side failure versus other process like renal disease. Will get renal studies and thyroid studies 2. Depression Further diagnoses and plan as above. <Oleksandr Beth - Last Filed: 04/02/18 15:41> (1) Volume overload Qualifiers: Qualified Code(s): E87.70 - Fluid overload, unspecified (2) Chest pain Qualifiers: Chest pain type: unspecified Qualified Code(s): R07.9 - Chest pain, unspecified (3) COPD (chronic obstructive pulmonary disease) Qualifiers: Qualified Code(s): J44.9 - Chronic obstructive pulmonary disease, unspecified <Lukas Landers - Last Filed: 04/02/18 17:51> (1) Chest pain Qualifiers: Chest pain type: unspecified Qualified Code(s): R07.9 - Chest pain, unspecified (2) Volume overload Qualifiers: Hypervolemia type: other Qualified Code(s): E87.79 - Other fluid overload (5) COPD (chronic obstructive pulmonary disease) Qualifiers: COPD type: emphysema Emphysema type: panlobular Qualified Code(s): J43.1 - Panlobular emphysema (6) Depression Qualifiers: Depression Type: unspecified Qualified Code(s): F32.9 - Major depressive disorder, single episode, unspecified
[2018-04-02] MEDS: Nicotine 7 MG PATCH.TD24 TD SCH (10:19)
[2018-04-02 13:17] LABS: Alanine Aminotransferase 61 Units/L (7-52); Albumin 4.7 g/dL (3.5-5.7); Albumin/Globulin Ratio 1.4 (1.1-2.2); Alkaline Phosphatase 96 Units/L (34-104); Aspartate Amino Transferase < 3 Units/L (13-39); Bilirubin,Direct 0.1 mg/dL (0.0-0.2); Bilirubin,Indirect 0.4 mg/dL (0.0-1.2); Bilirubin,Total 0.5 mg/dL (0.3-1.0); Globulin 3.4 g/dL (2.4-3.5); Total Protein 8.1 g/dL (6.4-8.9)
[2018-04-02 14:54] LABS: Bilirubin,Urine Negative (Negative); Blood,Urine Negative (Negative); Clarity,Urine Clear (Clear); Color,Urine Yellow (Yellow); Glucose,Urine (UA) Normal (Normal); Ketones,Urine Negative (Negative); Leukocyte Esterase,Urine Trace (Negative); Nitrite,Urine Negative (Negative); Protein,Urine Negative (Neg-Trace); Specific Gravity,Urine 1.009 (1.010-1.025); Urobilinogen,Urine Normal (Normal)
[2018-04-02 14:57] LABS: Bacteria,Urine None Seen per hpf (None-Few); Hyaline Casts,Urine None Seen per lpf (None-Few); RBC,Urine 0-3 per hpf (0-3); Squamous Epithelial Cell,Urine Many per lpf (None-Few)
[2018-04-03 02:46] LABS: Basophils % 0.2 %; Eosinophils # 0.1 K/mcL (0.0-0.6); Eosinophils % 0.5 %; Hematocrit 42.4 % (35.3-44.9); Hemoglobin 13.7 g/dL (11.5-15.4); Immature Granulocytes % 0.9 % (0-4); Lymphocytes # 2.1 K/mcL (0.6-4.6); Lymphocytes % 15.3 %; Mean Corpuscular HGB Conc 32.3 g/dL (31.6-35.5); Mean Corpuscular Hemoglobin 30.4 pg (28.0-33.3); Monocytes # 0.8 K/mcL (0.0-1.3); Monocytes % 5.6 %; Platelet Count 244 K/mcL (140-400); Red Blood Count 4.51 M/mcL (3.82-4.97); Red Cell Distribution Width 14.3 % (11.5-14.5); Segmented Neutrophils % 77.5 %
[2018-04-03 02:47] LABS: Neutrophils # 10.9 K/mcL (1.6-8.9)
[2018-04-03 03:02] LABS: BUN/Creatinine Ratio 34 (6-26); Blood Urea Nitrogen 29 mg/dL (6-20); Calcium 9.7 mg/dL (8.6-10.3); Carbon Dioxide 26 mEq/L (23-29); Chloride 98 mEq/L (98-107); Glucose 173 mg/dL (70-105); Osmolality,Calculated 292 (280-300); Potassium 3.7 mEq/L (3.5-5.1); Sodium 136 mEq/L (136-145); eGFR For Non-African Americans > 60 (> 60)
[2018-04-03] MEDS: Ipratropium/Albuterol Neb 3 ML IH SCH ×2 (04:28→11:04)
[2018-04-03] MEDS: *HR* Enoxaparin 40 MG/0.4 ML SYRINGE SQ SCH (05:10)
--- NOTE | 2018-04-03 08:32 | Internal Med Progress Note ---
Hospitalist Progress Note - Encounter Date of Encounter: 04/03/18 - Subjective Interval History: Patient was examined at the bedside. No acute distress. No chest pain, palpitations or shortness of breath appreciated. She continues to be on spironolactone 25 mg and Lasix 40 mg for her pedal edema. No evidence of congestive heart failure on echocardiogram as far as EF is concerned . Her belly does look a little distended, edematous in her extremities . Denies dysuria, hematuria or any suprapubic tenderness. - Exam Vitals: Temp Pulse Resp BP Pulse Ox 98.2 F 81 16 122/83 97 04/03/18 06:58 04/03/18 06:58 04/03/18 06:58 04/03/18 06:58 04/03/18 06:58 - Assessment and Plan (1) Volume overload Current Visit: Yes Status: Acute (2) Chest pain Current Visit: Yes Status: Acute (3) Depression Current Visit: Yes Status: Acute (4) COPD (chronic obstructive pulmonary disease) Current Visit: Yes Status: Acute (5) Former smoker Current Visit: Yes Status: Chronic (6) Morbid (severe) obesity due to excess calories Current Visit: Yes Status: Acute - Time Spent with Patient Total time spent is greater than 50% in coordination of care (as documented) at patient's floor/unit and/or counseling patient: Internal Medicine: Result - Labs CBC & Chem 7: 04/03/18 02:14 04/03/18 02:14 Labs: Short CBC 04/03/18 Range/Units 02:14 WBC 14.0 H D (4.3-11.1) K/mcL Hgb 13.7 (11.5-15.4) g/dL Hct 42.4 (35.3-44.9) % Plt Count 244 (140-400) K/mcL Neutrophils # 10.9 H (1.6-8.9) K/mcL BMP 04/03/18 02:14 Sodium 136 Potassium 3.7 Chloride 98 Carbon Dioxide 26 BUN 29 H Creatinine 0.85 Glucose 173 H Calcium 9.7 Liver Function 04/02/18 04/02/18 Range/Units 12:02 12:02 Total Bilirubin 0.5 (0.3-1.0) mg/dL Direct Bilirubin 0.1 (0.0-0.2) mg/dL AST < 3 L (13-39) Units/L ALT 61 H (7-52) Units/L Alkaline Phosphatase 96 (34-104) Units/L Albumin 4.7 4.7 (3.5-5.7) g/dL Urine 04/02/18 Range/Units 14:30 Urine Color Yellow (Yellow) Urine Clarity Clear (Clear) Urine pH 6.0 (5.0-8.0) pH Units Ur Specific [place] 1.009 L (1.010-1.025) Urine Protein Negative (Neg-Trace) mg/dL Urine Glucose (UA) Normal (Normal) mg/dL - ABG Interpretation ABG results: PT/INR, D-dimer D-Dimer 960 ng/mLFEU (0-500) H 03/30/18 17:25 Consult Discharge Plan - Plan Referrals: Bryan Mendez MD [Primary Care Provider] - 04/08/18 1:30 pm () (1) Volume overload Qualifiers: Hypervolemia type: other Qualified Code(s): E87.79 - Other fluid overload (2) Chest pain Qualifiers: Chest pain type: unspecified Qualified Code(s): R07.9 - Chest pain, unspecified (3) Depression Qualifiers: Depression Type: unspecified Qualified Code(s): F32.9 - Major depressive disorder, single episode, unspecified (4) COPD (chronic obstructive pulmonary disease) Qualifiers: COPD type: emphysema Emphysema type: panlobular Qualified Code(s): J43.1 - Panlobular emphysema
[2018-04-03] MEDS: BuPROPion XL (24 HR) 150 MG TABLET PO SCH (09:34)
[2018-04-03] MEDS: *HR* Metformin 500 MG TABLET PO SCH (09:34)
[2018-04-03] MEDS: Aspirin 81 MG TAB.CHEW PO SCH (09:34)
[2018-04-03] MEDS: Furosemide 40 MG/4 ML VIAL IVP SCH (09:34)
[2018-04-03] MEDS: Celecoxib 200 MG CAPSULE PO SCH (09:34)
[2018-04-03] MEDS: Spironolactone 25 MG TABLET PO SCH (09:34)
[2018-04-03] MEDS: Topiramate 25 MG TABLET PO SCH (09:34)
[2018-04-03] MEDS: predniSONE 20 MG TABLET PO SCH (09:35)
[2018-04-03] MEDS: Cholecalciferol (D-3) 1,000 UNIT TABLET PO SCH (09:35)
[2018-04-03] MEDS: Nicotine 7 MG PATCH.TD24 TD SCH (09:35)
[2018-04-03] MEDS: ARIPiprazole 10 MG TABLET PO SCH (09:35)
--- NOTE | 2018-04-03 11:50 | Discharge Summary ---
<Lukas Landers - Last Filed: 04/03/18 18:51> Date of Encounter: 04/03/18 - Discharge Diagnosis (1) Volume overload Priority: Primary Status: Acute Qualifiers: Hypervolemia type: other Qualified Code(s): E87.79 - Other fluid overload (2) Chest pain Priority: Secondary Status: Acute Qualifiers: Chest pain type: unspecified Qualified Code(s): R07.9 - Chest pain, unspecified (3) Morbid (severe) obesity due to excess calories Priority: Secondary Status: Chronic (4) Former smoker Priority: Secondary Status: Chronic (5) COPD (chronic obstructive pulmonary disease) Priority: Secondary Status: Chronic Qualifiers: COPD type: emphysema Emphysema type: panlobular Qualified Code(s): J43.1 - Panlobular emphysema (6) Depression Priority: Secondary Status: Chronic Qualifiers: Depression Type: unspecified Qualified Code(s): F32.9 - Major depressive disorder, single episode, unspecified Hospital course: Ms. Díaz is a 57 year old female - Time Spent with Patient Total time spent providing and/or coordinating discharge services: - Discharge Medications Home Medications: ARIPiprazole [Abilify] 10 mg PO DAILY 03/30/18 [History] Albuterol Sulfate [Ventolin Hfa] 2 puff IH Q4H PRN 03/30/18 [History] Aspirin [Adult Aspirin] 81 mg PO DAILY 03/30/18 [History] Atorvastatin [Lipitor] 40 mg PO HS 03/30/18 [History] BuPROPion XL (24 HR) [Wellbutrin Xl] 300 mg PO DAILY 03/30/18 [History] Celecoxib [Celebrex] 200 mg PO DAILY 03/30/18 [History] Cholecalciferol (Vitamin D3) [Vitamin D3] 10,000 unit PO QWEEK 03/30/18 [History] Escitalopram [Lexapro] 20 mg PO DAILY 03/30/18 [History] Ferrous Sulfate [Iron] 325 mg PO DAILY 03/30/18 [History] Furosemide [Lasix] 40 mg PO BID 03/30/18 [History] Losartan Potassium [Cozaar] 100 mg PO DAILY 03/30/18 [History] Metformin HCl 500 mg PO BID 03/30/18 [History] Mv,Fe,Min/Lutein [A Thru Z [employer] Tablet] 1 tab PO DAILY 03/30/18 [History] Omeprazole [PriLOSEC] 40 mg PO DAILY 03/30/18 [History] Spironolactone [Aldactone] 25 mg PO DAILY 03/30/18 [History] Topiramate [Topamax] 25 mg PO BID 03/30/18 [History] Allergies/Adverse Reactions: Allergy/AdvReac Type Severity Reaction Status Date / Time No Known Allergies Allergy Verified 03/30/18 15:18 Date of admission: 03/30/18 15:58 Primary care physician: Bryan Mendez MD Consults: 03/30/18 17:13 Consult to Nurse Navigator [CONS] Routine Comment: 03/30/18 19:31 Consult to Cardiac Rehabilitation-Phase1 [CONS] Routine Comment: Reason for Consult: heart failure Call Completed: Yes Consult to Nurse Navigator [CONS] Routine Comment: - Constitutional Vitals: Temp Pulse Resp BP Pulse Ox 98.0 F 84 16 123/77 97 04/03/18 11:48 04/03/18 11:48 04/03/18 11:48 04/03/18 11:48 04/03/18 11:48 - Patient Status Disposition: Home, Self-Care Condition: Good - Discharge Instructions Instructions: Heart Failure (DC), Chest Pain (DC), Chronic Obstructive Pulmonar y Disease (DC) Follow Up With: Sujit Romero MD [Partnered Physician] - (The office will call you at home with an appointment date and time. ) Bryan Mendez MD [Primary Care Provider] - 04/08/18 1:30 pm () Additional Instructions: -fluid Restriction to less than 2 L per day -Likely due to high salt diet, and high fat diet. - Return to the ED immediately should the leg edema worsen, and /or chest pain, shortness of breath - Attending Attestation I examined this patient and my medical decision-making was reviewed with the Resident Physician on 04/03/18. I agree with the documented findings, disposition and treatment plan as described except to the extent set forth below. Ms Díaz has been admitted for edema and volume overload. EF good and renal function good. She was diuresed with improvement. No CP or SOB at this time. Edema has improved. At this time she is afebrile and ready for discharge home. Exam alert Comfortable Mucus membranes dry Heart reg No wheeze abd soft Plan D/C home today. <Oleksandr Beth - Last Filed: 04/03/18 20:02> - NOTES TO OUTPATIENT PROVIDER Notes to Outpatient Provider: -Follow-up follow-up with cardiology as an outpatient for suspected pulmonary hypertension. - Folow up with PCP. Orders not resulted at time of discharge: Pending orders 04/04/18 04:00 CBC [Complete Blood Count] [HEME] AM 0400 CMP [Comprehensive Metabolic Panel] AM 0400 04/05/18 04:00 CBC [Complete Blood Count] [HEME] AM 0400 CMP [Comprehensive Metabolic Panel] AM 0400 Date of Encounter: 04/03/18 Time of Encounter: 08:45 - Discharge Diagnosis (1) Volume overload Status: Acute Qualifiers: Hypervolemia type: other Qualified Code(s): E87.79 - Other fluid overload (2) Chest pain Status: Acute Qualifiers: Chest pain type: unspecified Qualified Code(s): R07.9 - Chest pain, unspecified (3) Depression Status: Chronic Qualifiers: Depression Type: unspecified Qualified Code(s): F32.9 - Major depressive disorder, single episode, unspecified (4) COPD (chronic obstructive pulmonary disease) Status: Chronic Qualifiers: COPD type: emphysema Emphysema type: panlobular Qualified Code(s): J43.1 - Panlobular emphysema (5) Former smoker Status: Chronic (6) Morbid (severe) obesity due to excess calories Status: Chronic Hospital course: Ms. Díaz is a 57 year old female with past medical history of COPD, morbid obesity, sleep apnea, edema, who presents with progressive SOB and cough. Also endorsed chest pain on admission but her EKG was unremarkable for any ST-T changes , troponin negative, repeat EKG did show some evidence of left atrial enlargement . Patient endorsed that she has been on Lasix and spironolactone secondary to her edematous legs prescribed by her primary care doctor. She and underwent workup for her volume overload status, her echocardiogram was unremarkable with no evidence of any left ventricular dysfunction. There was some mild evidence of pulmonary hypertension and her EKG but her echo did not show a RVSP because of body habitus. Patient did not manifest any exacerbation of COPD during her hospital stay. She was deemed hemodynamically stable for discharge on day 5 of her admission. She has been told to follow-up with cardiology for further evaluation also for pulmonary hypertension. - Time Spent with Patient Total time spent providing and/or coordinating discharge services: Date of admission: 03/30/18 15:58 Primary care physician: Bryan Mendez MD Consults: 03/30/18 17:13 Consult to Nurse Navigator [CONS] Routine Comment: 03/30/18 19:31 Consult to Cardiac Rehabilitation-Phase1 [CONS] Routine Comment: Reason for Consult: heart failure Call Completed: Yes Consult to Nurse Navigator [CONS] Routine Comment: - Constitutional Vitals: Temp Pulse Resp BP Pulse Ox 98.2 F 81 16 122/83 97 04/03/18 06:58 04/03/18 06:58 04/03/18 11:05 04/03/18 06:58 04/03/18 11:05 General appearance: Present: A&O X 3, morbidly obese Exam: General appearance: Present: A&O X 3, morbidly obese Exam: mild distress. - Head Head exam: Present: atraumatic, normocephalic - Eye Eye exam: Present: PERRL, conjuntiva pink, sclera anicteric Pupils: Present: PERRL - Neck Neck exam general surgery: Present: supple, trachea midline. Absent: lymphadenopathy - Respiratory Respiratory exam: Present: Distant breath sounds and decreased B/L. Absent: accessory muscle use, rales, rhonchi, wheezes - Cardiovascular Cardiovascular exam: Present: RRR, +S1, +S2. Absent: diastolic murmur, gallop, rubs, systolic murmur - GI/Abdominal GI/Abdominal exam: Present: normal bowel sounds, soft, no peritoneal signs. Absent: distended, tenderness - Extremities Exam Extremities exam: Present: pedal edema, warm, radial pulses palpable and symmetrical. Absent: calf tenderness, cyanotic - Neurological Exam Neurological exam: Present: CN II-XII intact, oriented X3, no focal deficits. Absent: pronater drift, facial droop, speech deficit - Skin Skin exam: Present: dry, intact
[2018-04-03 11:52] VITALS: BP 123/77
== END 2018-04-03 14:07 | disposition home or self-care (01) ==
LOC: 3BNU 14:03 → EMEROOARM 14:03 → SUATTDRO 15:58 → 3BNU 16:56
PROVIDERS: ADMIT Internal Medicine; ATTEND Internal Medicine

== ENCOUNTER 2019-03-07 15:42 | Inpatient (IN) ==
[2019-03-07 17:01] LABS: Basophils % 0.5 %; Eosinophils # 0.2 K/mcL (0.0-0.6); Eosinophils % 2.2 %; Hematocrit 42.7 % (35.3-44.9); Hemoglobin 13.8 g/dL (11.5-15.4); Immature Granulocytes % 0.4 % (0-4); Lymphocytes # 1.3 K/mcL (0.6-4.6); Lymphocytes % 15.5 %; Mean Corpuscular HGB Conc 32.3 g/dL (31.6-35.5); Mean Corpuscular Hemoglobin 29.8 pg (28.0-33.3); Mean Corpuscular Volume 92.2 fL (83.0-100.0); Mean Platelet Volume 10.5 fL (9.4-12.4); Monocytes # 0.3 K/mcL (0.0-1.3); Monocytes % 3.2 %; Neutrophils # 6.4 K/mcL (1.6-8.9); Platelet Count 206 K/mcL (140-400); Red Blood Count 4.63 M/mcL (3.82-4.97); Red Cell Distribution Width 15.1 % (11.5-14.5); Segmented Neutrophils % 78.2 %; White Blood Count 8.2 K/mcL (4.3-11.1)
[2019-03-07] MEDS ORDERED: Piperacillin/Tazobactam 3.375 GM in 0.9 % Sodium Chloride Mini Bag 100 ML IVPB ONE (17:06)
[2019-03-07] MEDS ORDERED: *HR* OxyCODONE/APAP 5/325 TABLET PO ONE (17:09)
[2019-03-07 17:19] LABS: BUN/Creatinine Ratio 12 (6-26); Blood Urea Nitrogen 9 mg/dL (8-23); Calcium 9.7 mg/dL (8.6-10.3); Carbon Dioxide 30 mEq/L (23-29); Chloride 103 mEq/L (98-107); Glucose 166 mg/dL (70-105); Osmolality,Calculated 296 (280-300); Potassium 3.6 mEq/L (3.5-5.1); Sodium 142 mEq/L (136-145); eGFR For African Americans > 60 (> 60); eGFR For Non-African Americans > 60 (> 60)
[2019-03-07] MEDS ORDERED: Acetaminophen 325 MG TABLET PO PRN (17:57)
[2019-03-07] MEDS ORDERED: Ondansetron ODT 4 MG TAB.RAPDIS SL PRN (17:57)
[2019-03-07] MEDS ORDERED: Naloxone 0.4 MG/ML INJ IVP PRN (17:57)
[2019-03-07] MEDS: *HR* HYDROcodone/Acet 5/325 mg TABLET PO PRN (20:42)
[2019-03-08] MEDS: Piperacillin/Tazobactam 3.375 GM in 0.9 % Sodium Chloride Mini Bag 100 ML IVPB SCH ×4 (01:31→23:13)
[2019-03-08 07:21] LABS: Hematocrit 37.2 % (35.3-44.9); Mean Corpuscular HGB Conc 31.2 g/dL (31.6-35.5); Mean Corpuscular Volume 96.1 fL (83.0-100.0); Mean Platelet Volume 10.6 fL (9.4-12.4); Platelet Count 187 K/mcL (140-400); Red Blood Count 3.87 M/mcL (3.82-4.97); Red Cell Distribution Width 15.6 % (11.5-14.5); White Blood Count 6.7 K/mcL (4.3-11.1)
[2019-03-08 07:26] LABS: Hemoglobin 11.6 g/dL (11.5-15.4)
[2019-03-08 07:42] LABS: BUN/Creatinine Ratio 16 (6-26); Blood Urea Nitrogen 16 mg/dL (8-23); Calcium 8.7 mg/dL (8.6-10.3); Carbon Dioxide 30 mEq/L (23-29); Chloride 106 mEq/L (98-107); Glucose 106 mg/dL (70-105); Magnesium 2.1 mg/dL (1.6-2.6); Osmolality,Calculated 296 (280-300); Potassium 3.5 mEq/L (3.5-5.1); Sodium 142 mEq/L (136-145); eGFR For African Americans > 60 (> 60); eGFR For Non-African Americans 59 (> 60)
[2019-03-08] MEDS ORDERED: *HR* Dextrose 50 % in Water (Syg) 50 ML SYRINGE IVP PRN (08:35)
[2019-03-08] MEDS ORDERED: Dextrose Gel 15 GM/37.5 ML TUBE PO PRN ×2 (08:35)
[2019-03-08] MEDS ORDERED: D5% in Water 1,000 ML IVC PRN (08:35)
[2019-03-08] MEDS: *HR* Enoxaparin 40 MG/0.4 ML SYRINGE SQ SCH (09:27)
[2019-03-08] MEDS: Insulin LISPRO 300 UNITS/3 ML VIAL SQ SCH ×3 (13:22→20:42)
[2019-03-08] MEDS: *HR* HYDROcodone/Acet 5/325 mg TABLET PO PRN (13:57)
[2019-03-08] MEDS: Topiramate 25 MG TABLET PO SCH (19:28)
[2019-03-08] MEDS: Gabapentin 300 MG CAPSULE PO SCH (19:28)
[2019-03-09] MEDS: *HR* Enoxaparin 40 MG/0.4 ML SYRINGE SQ SCH (06:07)
[2019-03-09] MEDS: ARIPiprazole 10 MG TABLET PO SCH (07:45)
[2019-03-09] MEDS: Gabapentin 300 MG CAPSULE PO SCH ×3 (07:45→21:07)
[2019-03-09] MEDS: Bumetanide 1 MG TABLET PO SCH (07:45)
[2019-03-09] MEDS: Spironolactone 25 MG TABLET PO SCH (07:45)
[2019-03-09] MEDS: Aspirin Enteric Coated 81 MG Tablet PO SCH (07:45)
[2019-03-09] MEDS: Piperacillin/Tazobactam 3.375 GM in 0.9 % Sodium Chloride Mini Bag 100 ML IVPB SCH ×2 (07:46→15:43)
[2019-03-09] MEDS: *HR* HYDROcodone/Acet 5/325 mg TABLET PO PRN ×2 (07:54→21:06)
[2019-03-09] MEDS: Topiramate 25 MG TABLET PO SCH ×2 (07:54→21:07)
[2019-03-09] MEDS: Insulin LISPRO 300 UNITS/3 ML VIAL SQ SCH ×4 (08:15→22:15)
[2019-03-09] MEDS ORDERED: NON-FORMULARY MEDICATION 1 EACH EACH (Liraglutide [Victoza 3-Pak] 1.8 MG) SQ SCH (09:00)
[2019-03-09] MEDS: Miconazole 2% ointment 141 APPL/141 GM TUBE TP SCH ×2 (15:44→20:46)
[2019-03-09] MEDS ORDERED: Perflutren Lipid Microsphere 1.3 ML in 0.9 % Sodium Chloride 8.7 ML IVP ONE (19:55)
[2019-03-10] MEDS: Piperacillin/Tazobactam 3.375 GM in 0.9 % Sodium Chloride Mini Bag 100 ML IVPB SCH ×3 (00:26→16:00)
[2019-03-10 05:08] LABS: Basophils % 0.6 %; Eosinophils # 0.3 K/mcL (0.0-0.6); Eosinophils % 4.7 %; Hematocrit 38.2 % (35.3-44.9); Hemoglobin 12.6 g/dL (11.5-15.4); Immature Granulocytes % 0.2 % (0-4); Lymphocytes # 1.5 K/mcL (0.6-4.6); Lymphocytes % 23.5 %; Mean Corpuscular Hemoglobin 30.1 pg (28.0-33.3); Mean Corpuscular Volume 91.4 fL (83.0-100.0); Mean Platelet Volume 10.6 fL (9.4-12.4); Monocytes # 0.4 K/mcL (0.0-1.3); Monocytes % 7.1 %; Platelet Count 202 K/mcL (140-400); Red Blood Count 4.18 M/mcL (3.82-4.97); Red Cell Distribution Width 15.2 % (11.5-14.5); Segmented Neutrophils % 63.9 %; White Blood Count 6.2 K/mcL (4.3-11.1)
[2019-03-10] MEDS: *HR* Enoxaparin 40 MG/0.4 ML SYRINGE SQ SCH (05:54)
[2019-03-10 06:13] LABS: BUN/Creatinine Ratio 19 (6-26); Blood Urea Nitrogen 17 mg/dL (8-23); Calcium 9.3 mg/dL (8.6-10.3); Carbon Dioxide 31 mEq/L (23-29); Chloride 104 mEq/L (98-107); Glucose 115 mg/dL (70-105); Osmolality,Calculated 296 (280-300); Potassium 4.6 mEq/L (3.5-5.1); Sodium 142 mEq/L (136-145); eGFR For African Americans > 60 (> 60); eGFR For Non-African Americans > 60 (> 60)
[2019-03-10] MEDS: Insulin LISPRO 300 UNITS/3 ML VIAL SQ SCH ×4 (08:53→21:53)
[2019-03-10] MEDS: Aspirin Enteric Coated 81 MG Tablet PO SCH (08:54)
[2019-03-10] MEDS: Topiramate 25 MG TABLET PO SCH ×2 (08:54→21:53)
[2019-03-10] MEDS: Spironolactone 25 MG TABLET PO SCH (08:54)
[2019-03-10] MEDS: Gabapentin 300 MG CAPSULE PO SCH ×3 (08:54→21:53)
[2019-03-10] MEDS: Bumetanide 1 MG TABLET PO SCH (08:54)
[2019-03-10] MEDS: ARIPiprazole 10 MG TABLET PO SCH (08:54)
[2019-03-10] MEDS: Miconazole 2% ointment 141 APPL/141 GM TUBE TP SCH ×2 (08:55→21:54)
[2019-03-10] MEDS ORDERED: Bumetanide 1 MG/4 ML VIAL IVP ONE (11:46)
[2019-03-10] MEDS: *HR* HYDROcodone/Acet 5/325 mg TABLET PO PRN (21:53)
[2019-03-11] MEDS: Piperacillin/Tazobactam 3.375 GM in 0.9 % Sodium Chloride Mini Bag 100 ML IVPB SCH ×3 (00:36→15:15)
[2019-03-11 05:20] LABS: Basophils # 0.1 K/mcL (0.0-0.2); Basophils % 0.7 %; Eosinophils # 0.4 K/mcL (0.0-0.6); Eosinophils % 5.2 %; Hematocrit 41.6 % (35.3-44.9); Hemoglobin 13.3 g/dL (11.5-15.4); Immature Granulocytes % 0.4 % (0-4); Lymphocytes # 1.7 K/mcL (0.6-4.6); Lymphocytes % 21.6 %; Mean Corpuscular Volume 93.7 fL (83.0-100.0); Mean Platelet Volume 10.7 fL (9.4-12.4); Monocytes # 0.6 K/mcL (0.0-1.3); Monocytes % 7.3 %; Neutrophils # 5.2 K/mcL (1.6-8.9); Platelet Count 201 K/mcL (140-400); Red Blood Count 4.44 M/mcL (3.82-4.97); Red Cell Distribution Width 15.3 % (11.5-14.5); Segmented Neutrophils % 64.8 %; White Blood Count 8.1 K/mcL (4.3-11.1)
[2019-03-11 05:35] LABS: BUN/Creatinine Ratio 20 (6-26); Blood Urea Nitrogen 21 mg/dL (8-23); Calcium 9.5 mg/dL (8.6-10.3); Carbon Dioxide 32 mEq/L (23-29); Chloride 101 mEq/L (98-107); Glucose 112 mg/dL (70-105); Osmolality,Calculated 294 (280-300); Potassium 3.9 mEq/L (3.5-5.1); Sodium 140 mEq/L (136-145); eGFR For African Americans > 60 (> 60); eGFR For Non-African Americans 54 (> 60)
[2019-03-11] MEDS: *HR* Enoxaparin 40 MG/0.4 ML SYRINGE SQ SCH (06:19)
[2019-03-11] MEDS: Bumetanide 1 MG TABLET PO SCH (08:40)
[2019-03-11] MEDS: Gabapentin 300 MG CAPSULE PO SCH ×3 (08:40→20:32)
[2019-03-11] MEDS: Topiramate 25 MG TABLET PO SCH ×2 (08:40→20:32)
[2019-03-11] MEDS: Spironolactone 25 MG TABLET PO SCH (08:40)
[2019-03-11] MEDS: ARIPiprazole 10 MG TABLET PO SCH (08:40)
[2019-03-11] MEDS: Aspirin Enteric Coated 81 MG Tablet PO SCH (08:40)
[2019-03-11] MEDS: Miconazole 2% ointment 141 APPL/141 GM TUBE TP SCH (08:41)
[2019-03-11] MEDS: Insulin LISPRO 300 UNITS/3 ML VIAL SQ SCH ×4 (08:50→20:34)
[2019-03-11] MEDS ORDERED: Bumetanide 1 MG/4 ML VIAL IVP ONE (09:51)
[2019-03-11] MEDS: *HR* HYDROcodone/Acet 5/325 mg TABLET PO PRN (20:32)
[2019-03-12] MEDS: Piperacillin/Tazobactam 3.375 GM in 0.9 % Sodium Chloride Mini Bag 100 ML IVPB SCH (03:13)
[2019-03-12] MEDS: *HR* Enoxaparin 40 MG/0.4 ML SYRINGE SQ SCH (05:12)
[2019-03-12] MEDS: Aspirin Enteric Coated 81 MG Tablet PO SCH (08:00)
[2019-03-12] MEDS: Gabapentin 300 MG CAPSULE PO SCH (08:00)
[2019-03-12] MEDS: Bumetanide 1 MG TABLET PO SCH (08:01)
[2019-03-12] MEDS: ARIPiprazole 10 MG TABLET PO SCH (08:01)
[2019-03-12] MEDS: Topiramate 25 MG TABLET PO SCH (08:01)
[2019-03-12] MEDS: Spironolactone 25 MG TABLET PO SCH (08:01)
[2019-03-12] MEDS: Insulin LISPRO 300 UNITS/3 ML VIAL SQ SCH ×2 (08:01→12:20)
[2019-03-12] MEDS ORDERED: Piperacillin/Tazobactam 3.375 GM in 0.9 % Sodium Chloride Mini Bag 100 ML IVPB SCH (11:00)
[2019-03-12 12:22] VITALS: BP 139/83
[2019-03-12] MEDS ORDERED: Aminoglycoside Consult 1 EACH MC ONE (15:04)
[2019-03-14] MEDS ORDERED: Cholecalciferol (D-3) 1,000 UNIT (25MCG) TABLET PO SCH (09:00)
== END 2019-03-12 15:05 | disposition home health service (06) | DRG 602 ==
LOC: EMEROOARM 15:42 → 3NENU 15:42 → SUATTDRO 18:07 → 3NENU 18:49
PROVIDERS: ADMIT Internal Medicine; ATTEND Internal Medicine

== ENCOUNTER 2019-08-18 18:41 | Inpatient (IN) ==
[2019-08-18 19:18] LABS: Basophils % 0.4 %; Eosinophils # 0.2 K/mcL (0.0-0.6); Eosinophils % 1.7 %; Hematocrit 38.4 % (35.3-44.9); Hemoglobin 12.6 g/dL (11.5-15.4); Immature Granulocytes % 0.4 % (0-4); Lymphocytes # 1.9 K/mcL (0.6-4.6); Lymphocytes % 16.7 %; Mean Corpuscular HGB Conc 32.8 g/dL (31.6-35.5); Mean Corpuscular Hemoglobin 30.6 pg (28.0-33.3); Mean Corpuscular Volume 93.2 fL (83.0-100.0); Mean Platelet Volume 10.5 fL (9.4-12.4); Monocytes # 0.5 K/mcL (0.0-1.3); Monocytes % 4.6 %; Neutrophils # 8.7 K/mcL (1.6-8.9); Platelet Count 238 K/mcL (140-400); Red Blood Count 4.12 M/mcL (3.82-4.97); Red Cell Distribution Width 14.5 % (11.5-14.5); Segmented Neutrophils % 76.2 %; White Blood Count 11.4 K/mcL (4.3-11.1)
[2019-08-18 19:39] LABS: BUN/Creatinine Ratio 22 (6-26); Blood Urea Nitrogen 21 mg/dL (8-23); Calcium 9.4 mg/dL (8.6-10.3); Carbon Dioxide 29 mEq/L (23-29); Chloride 96 mEq/L (98-107); Glucose 92 mg/dL (70-105); Osmolality,Calculated 285 (280-300); Potassium 3.5 mEq/L (3.5-5.1); Sodium 136 mEq/L (136-145); Troponin I < 0.03 ng/mL (< 0.04); eGFR For African Americans > 60 (> 60); eGFR For Non-African Americans 60 (> 60)
[2019-08-18] MEDS ORDERED: *HR* Dextrose 50 % in Water (Syg) 50 ML SYRINGE IVP PRN (20:58)
[2019-08-18] MEDS ORDERED: D5% in Water 1,000 ML IVC PRN (20:58)
[2019-08-18] MEDS ORDERED: Dextrose Gel 15 GM/37.5 ML TUBE PO PRN ×2 (20:58)
[2019-08-18] MEDS: Topiramate 25 MG TABLET PO SCH (22:26)
[2019-08-18] MEDS: *HR* Heparin 5,000 UNIT/ML VIAL SQ SCH (22:26)
[2019-08-18] MEDS: Furosemide 40 MG/4 ML VIAL IVP SCH (23:18)
[2019-08-19 02:39] LABS: Basophils % 0.4 %; Eosinophils # 0.2 K/mcL (0.0-0.6); Eosinophils % 2.2 %; Hematocrit 36.9 % (35.3-44.9); Hemoglobin 12.3 g/dL (11.5-15.4); Immature Granulocytes % 0.5 % (0-4); Lymphocytes # 2.1 K/mcL (0.6-4.6); Lymphocytes % 19.9 %; Mean Corpuscular HGB Conc 33.3 g/dL (31.6-35.5); Mean Corpuscular Hemoglobin 31.6 pg (28.0-33.3); Mean Corpuscular Volume 94.9 fL (83.0-100.0); Mean Platelet Volume 11.2 fL (9.4-12.4); Monocytes # 0.5 K/mcL (0.0-1.3); Monocytes % 4.9 %; Neutrophils # 7.5 K/mcL (1.6-8.9); Platelet Count 237 K/mcL (140-400); Red Blood Count 3.89 M/mcL (3.82-4.97); Red Cell Distribution Width 14.6 % (11.5-14.5); Segmented Neutrophils % 72.1 %; White Blood Count 10.4 K/mcL (4.3-11.1)
[2019-08-19 02:59] LABS: BUN/Creatinine Ratio 22 (6-26); Blood Urea Nitrogen 20 mg/dL (8-23); Calcium 9.3 mg/dL (8.6-10.3); Carbon Dioxide 29 mEq/L (23-29); Chloride 98 mEq/L (98-107); Glucose 131 mg/dL (70-105); Osmolality,Calculated 290 (280-300); Potassium 3.2 mEq/L (3.5-5.1); Sodium 138 mEq/L (136-145); eGFR For African Americans > 60 (> 60); eGFR For Non-African Americans > 60 (> 60)
[2019-08-19 03:13] LABS: Thyroid Stimulating Hormone 2.793 mcIU/mL (0.340-5.600)
[2019-08-19] MEDS: *HR* Heparin 5,000 UNIT/ML VIAL SQ SCH ×3 (05:28→21:13)
[2019-08-19] MEDS: Insulin LISPRO 300 UNITS/3 ML VIAL SQ SCH ×3 (08:25→17:11)
[2019-08-19] MEDS ORDERED: Potassium Chloride Elixir 20 MEQ/15 ML UDC PO SCH (08:45)
[2019-08-19] MEDS: ARIPiprazole 5 MG TABLET PO SCH (08:47)
[2019-08-19] MEDS: Cholecalciferol (D-3) 1,000 UNIT (25MCG) TABLET PO SCH (08:47)
[2019-08-19] MEDS: Aspirin Enteric Coated 81 MG Tablet PO SCH (08:47)
[2019-08-19] MEDS: Topiramate 25 MG TABLET PO SCH ×2 (08:47→20:15)
[2019-08-19] MEDS: Furosemide 40 MG/4 ML VIAL IVP SCH ×2 (08:48→20:15)
[2019-08-19] MEDS ORDERED: Spironolactone 25 MG TABLET PO SCH (09:00)
[2019-08-19] MEDS ORDERED: Bumetanide 1 MG TABLET PO SCH (09:00)
[2019-08-19] MEDS: Potassium Chloride Elixir 20 MEQ/15 ML UDC PO SCH ×2 (11:08→16:02)
[2019-08-19] MEDS: cefTRIAXone 1,000 MG in Water for inj. (sterile) 10 ML IVP SCH (11:08)
[2019-08-19] MEDS: metOLazone 5 MG TABLET PO SCH (11:14)
[2019-08-19] MEDS ORDERED: Potassium Chloride Elixir 20 MEQ/15 ML UDC PO ONE (16:00)
[2019-08-20] MEDS: *HR* Heparin 5,000 UNIT/ML VIAL SQ SCH ×3 (05:04→20:45)
[2019-08-20] MEDS: Insulin LISPRO 300 UNITS/3 ML VIAL SQ SCH ×3 (10:18→17:32)
[2019-08-20] MEDS: Furosemide 40 MG/4 ML VIAL IVP SCH ×2 (10:24→20:45)
[2019-08-20] MEDS: cefTRIAXone 1,000 MG in Water for inj. (sterile) 10 ML IVP SCH (10:26)
[2019-08-20] MEDS: Potassium Chloride Elixir 20 MEQ/15 ML UDC PO SCH ×2 (10:27→15:32)
[2019-08-20] MEDS: Aspirin Enteric Coated 81 MG Tablet PO SCH (10:28)
[2019-08-20] MEDS: Topiramate 25 MG TABLET PO SCH ×2 (10:28→20:45)
[2019-08-20] MEDS: Cholecalciferol (D-3) 1,000 UNIT (25MCG) TABLET PO SCH (10:28)
[2019-08-20] MEDS: ARIPiprazole 5 MG TABLET PO SCH (10:28)
[2019-08-20] MEDS: metOLazone 5 MG TABLET PO SCH (10:28)
[2019-08-20 11:12] LABS: Basophils % 0.5 %; Eosinophils # 0.2 K/mcL (0.0-0.6); Eosinophils % 2.3 %; Hematocrit 40.1 % (35.3-44.9); Hemoglobin 13.7 g/dL (11.5-15.4); Immature Granulocytes % 0.6 % (0-4); Lymphocytes # 1.3 K/mcL (0.6-4.6); Lymphocytes % 16.2 %; Mean Corpuscular HGB Conc 34.2 g/dL (31.6-35.5); Mean Corpuscular Hemoglobin 31.5 pg (28.0-33.3); Mean Corpuscular Volume 92.2 fL (83.0-100.0); Mean Platelet Volume 10.7 fL (9.4-12.4); Monocytes # 0.4 K/mcL (0.0-1.3); Monocytes % 4.6 %; Neutrophils # 6.2 K/mcL (1.6-8.9); Platelet Count 264 K/mcL (140-400); Red Blood Count 4.35 M/mcL (3.82-4.97); Red Cell Distribution Width 14.4 % (11.5-14.5); Segmented Neutrophils % 75.8 %; White Blood Count 8.1 K/mcL (4.3-11.1)
[2019-08-20 11:40] LABS: BUN/Creatinine Ratio 22 (6-26); Blood Urea Nitrogen 20 mg/dL (8-23); Carbon Dioxide 27 mEq/L (23-29); Chloride 95 mEq/L (98-107); Glucose 192 mg/dL (70-105); Osmolality,Calculated 282 (280-300); Potassium 4.1 mEq/L (3.5-5.1); Sodium 132 mEq/L (136-145); eGFR For African Americans > 60 (> 60); eGFR For Non-African Americans > 60 (> 60)
[2019-08-20] MEDS ORDERED: Aminoglycoside Consult 1 EACH MC ONE (15:23)
[2019-08-21 04:25] LABS: Basophils # 0.1 K/mcL (0.0-0.2); Basophils % 0.5 %; Eosinophils # 0.3 K/mcL (0.0-0.6); Eosinophils % 3.4 %; Hematocrit 38.1 % (35.3-44.9); Hemoglobin 12.7 g/dL (11.5-15.4); Immature Granulocytes % 0.6 % (0-4); Lymphocytes # 2.3 K/mcL (0.6-4.6); Lymphocytes % 22.6 %; Mean Corpuscular HGB Conc 33.3 g/dL (31.6-35.5); Mean Corpuscular Hemoglobin 30.4 pg (28.0-33.3); Mean Corpuscular Volume 91.1 fL (83.0-100.0); Mean Platelet Volume 10.9 fL (9.4-12.4); Monocytes # 0.6 K/mcL (0.0-1.3); Monocytes % 5.9 %; Neutrophils # 6.7 K/mcL (1.6-8.9); Platelet Count 243 K/mcL (140-400); Red Blood Count 4.18 M/mcL (3.82-4.97); Red Cell Distribution Width 14.6 % (11.5-14.5)
[2019-08-21 04:44] LABS: BUN/Creatinine Ratio 28 (6-26); Blood Urea Nitrogen 24 mg/dL (8-23); Calcium 9.4 mg/dL (8.6-10.3); Carbon Dioxide 28 mEq/L (23-29); Chloride 90 mEq/L (98-107); Glucose 121 mg/dL (70-105); Osmolality,Calculated 273 (280-300); Phosphorous 4.9 mg/dL (2.7-4.5); Potassium 3.1 mEq/L (3.5-5.1); Sodium 129 mEq/L (136-145); eGFR For African Americans > 60 (> 60); eGFR For Non-African Americans > 60 (> 60)
[2019-08-21] MEDS: *HR* Heparin 5,000 UNIT/ML VIAL SQ SCH (05:52)
[2019-08-21] MEDS: Aspirin Enteric Coated 81 MG Tablet PO SCH (09:30)
[2019-08-21] MEDS: Potassium Chloride Elixir 20 MEQ/15 ML UDC PO SCH ×2 (09:30→12:17)
[2019-08-21] MEDS: Topiramate 25 MG TABLET PO SCH (09:30)
[2019-08-21] MEDS: cefTRIAXone 1,000 MG in Water for inj. (sterile) 10 ML IVP SCH (09:31)
[2019-08-21] MEDS: ARIPiprazole 5 MG TABLET PO SCH (09:31)
[2019-08-21] MEDS: Cholecalciferol (D-3) 1,000 UNIT (25MCG) TABLET PO SCH (09:31)
[2019-08-21] MEDS: metOLazone 5 MG TABLET PO SCH (09:31)
[2019-08-21] MEDS: Furosemide 40 MG/4 ML VIAL IVP SCH (09:31)
[2019-08-21] MEDS: Insulin LISPRO 300 UNITS/3 ML VIAL SQ SCH ×2 (09:32→12:03)
[2019-08-21 11:49] VITALS: BP 100/72
== END 2019-08-21 15:24 | disposition home or self-care (01) ==
LOC: EMEROOARM 18:41 → 3BNU 18:41
PROVIDERS: ADMIT Student in an Organized Health Care Education/Training Program; ATTEND Student in an Organized Health Care Education/Training Program

== ENCOUNTER 2019-08-25 12:40 | Inpatient (IN) ==
[2019-08-25] MEDS ORDERED: Bumetanide 1 MG TABLET PO ONE (12:52)
[2019-08-25 13:42] LABS: BUN/Creatinine Ratio 34 (6-26); Blood Urea Nitrogen 34 mg/dL (8-23); Calcium 9.6 mg/dL (8.6-10.3); Carbon Dioxide 30 mEq/L (23-29); Chloride 77 mEq/L (98-107); Glucose 119 mg/dL (70-105); Osmolality,Calculated 257 (280-300); Potassium 2.6 mEq/L (3.5-5.1); Sodium 119 mEq/L (136-145); eGFR For African Americans > 60 (> 60); eGFR For Non-African Americans 56 (> 60)
[2019-08-25 15:04] LABS: Magnesium 2.1 mg/dL (1.6-2.6)
[2019-08-25 15:08] LABS: Bilirubin,Urine Negative (Negative); Blood,Urine Negative (Negative); Clarity,Urine Clear (Clear); Color,Urine Yellow (Yellow); Glucose,Urine (UA) Normal (Normal); Ketones,Urine Negative (Negative); Leukocyte Esterase,Urine Negative (Negative); Nitrite,Urine Negative (Negative); Protein,Urine Negative (Neg-Trace); Urobilinogen,Urine Normal (Normal)
[2019-08-25] MEDS: 0.9 % Sodium Chloride 1,000 ML IVC SCH ×2 (15:35→21:02)
[2019-08-25] MEDS ORDERED: Naloxone 0.4 MG/ML INJ IVP PRN (16:21)
[2019-08-25 17:18] LABS: BUN/Creatinine Ratio 33 (6-26); Blood Urea Nitrogen 33 mg/dL (8-23); Calcium 9.1 mg/dL (8.6-10.3); Carbon Dioxide 31 mEq/L (23-29); Chloride 79 mEq/L (98-107); Glucose 104 mg/dL (70-105); Osmolality,Calculated 258 (280-300); Potassium 2.7 mEq/L (3.5-5.1); Sodium 120 mEq/L (136-145); eGFR For African Americans > 60 (> 60); eGFR For Non-African Americans 56 (> 60)
[2019-08-25] MEDS ORDERED: 0.9 % Sodium Chloride 1,000 ML IVC SCH (17:45)
[2019-08-25] MEDS: Topiramate 25 MG TABLET PO SCH (19:45)
[2019-08-25] MEDS: Gabapentin 300 MG CAPSULE PO SCH (19:45)
[2019-08-25 21:33] LABS: BUN/Creatinine Ratio 35 (6-26); Blood Urea Nitrogen 33 mg/dL (8-23); Calcium 8.8 mg/dL (8.6-10.3); Carbon Dioxide 31 mEq/L (23-29); Chloride 80 mEq/L (98-107); Glucose 97 mg/dL (70-105); Osmolality,Calculated 255 (280-300); Sodium 119 mEq/L (136-145); eGFR For African Americans > 60 (> 60); eGFR For Non-African Americans > 60 (> 60)
[2019-08-26 01:06] LABS: BUN/Creatinine Ratio 37 (6-26); Blood Urea Nitrogen 33 mg/dL (8-23); Calcium 8.8 mg/dL (8.6-10.3); Carbon Dioxide 31 mEq/L (23-29); Chloride 82 mEq/L (98-107); Glucose 103 mg/dL (70-105); Osmolality,Calculated 260 (280-300); Potassium 2.9 mEq/L (3.5-5.1); Sodium 121 mEq/L (136-145); eGFR For African Americans > 60 (> 60); eGFR For Non-African Americans > 60 (> 60)
[2019-08-26] MEDS ORDERED: Potassium Chloride 40 MEQ, Lidocaine 1% 2 ML in 0.9 % Sodium Chloride 500 ML IVPB ONE (04:15)
[2019-08-26 04:50] LABS: BUN/Creatinine Ratio 38 (6-26); Blood Urea Nitrogen 32 mg/dL (8-23); Calcium 8.9 mg/dL (8.6-10.3); Carbon Dioxide 32 mEq/L (23-29); Chloride 83 mEq/L (98-107); Glucose 98 mg/dL (70-105); Osmolality,Calculated 261 (280-300); Sodium 122 mEq/L (136-145); eGFR For African Americans > 60 (> 60); eGFR For Non-African Americans > 60 (> 60)
[2019-08-26 08:59] LABS: BUN/Creatinine Ratio 36 (6-26); Blood Urea Nitrogen 28 mg/dL (8-23); Calcium 8.9 mg/dL (8.6-10.3); Carbon Dioxide 31 mEq/L (23-29); Chloride 88 mEq/L (98-107); Glucose 97 mg/dL (70-105); Osmolality,Calculated 267 (280-300); Potassium 4.3 mEq/L (3.5-5.1); Sodium 126 mEq/L (136-145); eGFR For African Americans > 60 (> 60); eGFR For Non-African Americans > 60 (> 60)
[2019-08-26] MEDS: Topiramate 25 MG TABLET PO SCH ×2 (09:43→20:16)
[2019-08-26] MEDS: ARIPiprazole 10 MG TABLET PO SCH (09:43)
[2019-08-26] MEDS: Gabapentin 300 MG CAPSULE PO SCH ×3 (09:44→20:16)
[2019-08-26 13:42] LABS: BUN/Creatinine Ratio 30 (6-26); Blood Urea Nitrogen 24 mg/dL (8-23); Calcium 9.1 mg/dL (8.6-10.3); Carbon Dioxide 30 mEq/L (23-29); Chloride 89 mEq/L (98-107); Glucose 146 mg/dL (70-105); Osmolality,Calculated 271 (280-300); Potassium 3.2 mEq/L (3.5-5.1); Sodium 127 mEq/L (136-145); eGFR For African Americans > 60 (> 60); eGFR For Non-African Americans > 60 (> 60)
[2019-08-26 22:17] LABS: BUN/Creatinine Ratio 34 (6-26); Blood Urea Nitrogen 25 mg/dL (8-23); Calcium 9.2 mg/dL (8.6-10.3); Carbon Dioxide 31 mEq/L (23-29); Chloride 92 mEq/L (98-107); Glucose 101 mg/dL (70-105); Osmolality,Calculated 275 (280-300); Potassium 3.3 mEq/L (3.5-5.1); Sodium 130 mEq/L (136-145); eGFR For African Americans > 60 (> 60); eGFR For Non-African Americans > 60 (> 60)
[2019-08-27 01:33] LABS: BUN/Creatinine Ratio 31 (6-26); Blood Urea Nitrogen 22 mg/dL (8-23); Calcium 9.3 mg/dL (8.6-10.3); Carbon Dioxide 32 mEq/L (23-29); Chloride 93 mEq/L (98-107); Glucose 104 mg/dL (70-105); Osmolality,Calculated 278 (280-300); Potassium 3.1 mEq/L (3.5-5.1); Sodium 132 mEq/L (136-145); eGFR For African Americans > 60 (> 60); eGFR For Non-African Americans > 60 (> 60)
[2019-08-27 04:59] LABS: BUN/Creatinine Ratio 22 (6-26); Blood Urea Nitrogen 22 mg/dL (8-23); Calcium 9.5 mg/dL (8.6-10.3); Carbon Dioxide 33 mEq/L (23-29); Chloride 92 mEq/L (98-107); Glucose 167 mg/dL (70-105); Osmolality,Calculated 283 (280-300); Sodium 133 mEq/L (136-145); eGFR For African Americans > 60 (> 60); eGFR For Non-African Americans 57 (> 60)
[2019-08-27] MEDS: ARIPiprazole 10 MG TABLET PO SCH (08:41)
[2019-08-27] MEDS: Gabapentin 300 MG CAPSULE PO SCH ×3 (08:41→21:12)
[2019-08-27] MEDS: Topiramate 25 MG TABLET PO SCH ×2 (08:41→21:13)
[2019-08-27] MEDS ORDERED: Bumetanide 1 MG TABLET PO ONE (10:06)
[2019-08-27 16:28] LABS: BUN/Creatinine Ratio 26 (6-26); Blood Urea Nitrogen 26 mg/dL (8-23); Calcium 9.6 mg/dL (8.6-10.3); Carbon Dioxide 33 mEq/L (23-29); Chloride 94 mEq/L (98-107); Glucose 104 mg/dL (70-105); Osmolality,Calculated 287 (280-300); Potassium 3.1 mEq/L (3.5-5.1); Sodium 136 mEq/L (136-145); eGFR For African Americans > 60 (> 60); eGFR For Non-African Americans 57 (> 60)
[2019-08-28 03:22] LABS: BUN/Creatinine Ratio 35 (6-26); Blood Urea Nitrogen 28 mg/dL (8-23); Calcium 9.2 mg/dL (8.6-10.3); Carbon Dioxide 30 mEq/L (23-29); Chloride 95 mEq/L (98-107); Glucose 136 mg/dL (70-105); Osmolality,Calculated 286 (280-300); Potassium 2.8 mEq/L (3.5-5.1); Sodium 134 mEq/L (136-145); eGFR For African Americans > 60 (> 60); eGFR For Non-African Americans > 60 (> 60)
[2019-08-28] MEDS: Topiramate 25 MG TABLET PO SCH (08:33)
[2019-08-28] MEDS: ARIPiprazole 10 MG TABLET PO SCH (08:33)
[2019-08-28] MEDS: Gabapentin 300 MG CAPSULE PO SCH ×2 (08:34→17:32)
[2019-08-28] MEDS ORDERED: metOLazone 5 MG TABLET PO SCH (09:00)
[2019-08-28] MEDS ORDERED: Aspirin Enteric Coated 81 MG Tablet PO SCH (09:00)
[2019-08-28 15:09] LABS: BUN/Creatinine Ratio 33 (6-26); Blood Urea Nitrogen 24 mg/dL (8-23); Calcium 9.4 mg/dL (8.6-10.3); Carbon Dioxide 32 mEq/L (23-29); Chloride 95 mEq/L (98-107); Glucose 102 mg/dL (70-105); Osmolality,Calculated 282 (280-300); Potassium 3.6 mEq/L (3.5-5.1); Sodium 134 mEq/L (136-145); eGFR For African Americans > 60 (> 60); eGFR For Non-African Americans > 60 (> 60)
[2019-08-28 15:23] VITALS: BP 112/76
== END 2019-08-28 18:10 | disposition home or self-care (01) | DRG 641 ==
LOC: 2ANU 12:40 → EMEROOARM 12:40 → 2ANU 16:41
PROVIDERS: ADMIT Internal Medicine; ATTEND Internal Medicine

== ENCOUNTER 2020-04-25 16:49 | Inpatient (IN) ==
[2020-04-25 17:39] LABS: Basophils % 0.1 %; Eosinophils % 0.2 %; Red Cell Distribution Width 14.1 % (11.5-14.5)
[2020-04-25 17:40] LABS: Fibrinogen 468 mg/dL (169-393)
[2020-04-25 17:41] LABS: D-Dimer 710 ng/mLFEU (0-500); Hematocrit 40.7 % (35.3-44.9); Hemoglobin 13.3 g/dL (11.5-15.4); Immature Granulocytes % 0.4 % (0-4); Immature Platelets 8.2 % (1.1-6.1); Lymphocytes # 0.5 K/mcL (0.6-4.6); Lymphocytes % 6.4 %; Mean Corpuscular HGB Conc 32.7 g/dL (31.6-35.5); Mean Corpuscular Hemoglobin 29.8 pg (28.0-33.3); Mean Corpuscular Volume 91.3 fL (83.0-100.0); Mean Platelet Volume 11.2 fL (9.4-12.4); Monocytes # 0.2 K/mcL (0.0-1.3); Monocytes % 2.8 %; Neutrophils # 7.3 K/mcL (1.6-8.9); Platelet Count 125 K/mcL (140-400); Red Blood Count 4.46 M/mcL (3.82-4.97); Segmented Neutrophils % 90.1 %; White Blood Count 8.1 K/mcL (4.3-11.1)
[2020-04-25] MEDS ORDERED: Azithromycin 500 MG in 0.9 % Sodium Chloride 250 ML IVPB ONE (17:42)
[2020-04-25] MEDS ORDERED: cefTRIAXone 1,000 MG in Water for inj. (sterile) 10 ML IVP ONE (17:42)
[2020-04-25] MEDS ORDERED: Isovue-370 500 ML BOTTLE IVP ONE (17:43)
[2020-04-25] MEDS ORDERED: Dexamethasone 4 MG/ML VIAL IVP ONE (17:47)
[2020-04-25 17:56] LABS: BUN/Creatinine Ratio 20 (6-26); Blood Urea Nitrogen 19 mg/dL (8-23); Carbon Dioxide 26 mEq/L (23-29); Chloride 95 mEq/L (98-107); Potassium 3.6 mEq/L (3.5-5.1); Sodium 133 mEq/L (136-145)
[2020-04-25 17:57] LABS: Alanine Aminotransferase 52 Units/L (7-52); Albumin 4.3 g/dL (3.5-5.7); Albumin/Globulin Ratio 1.4 (1.1-2.2); Alkaline Phosphatase 114 Units/L (34-104); Aspartate Amino Transferase 39 Units/L (13-39); Bilirubin,Total 0.4 mg/dL (0.3-1.0); Calcium 9.1 mg/dL (8.6-10.3); Globulin 3.1 g/dL (2.4-3.5); Glucose 113 mg/dL (70-105); Osmolality,Calculated 279 (280-300); Total Protein 7.4 g/dL (6.4-8.9); Troponin I < 0.03 ng/mL (< 0.04); eGFR For African Americans > 60 (> 60); eGFR For Non-African Americans > 60 (> 60)
[2020-04-25 18:11] LABS: Ferritin 223 ng/mL (10-120)
[2020-04-25] MEDS ORDERED: Azithromycin 500 MG in 0.9 % Sodium Chloride 250 ML IVPB STA (19:21)
[2020-04-25] MEDS ORDERED: Albuterol 2.5 MG/3 ML NEBULIZER IH PRN (21:21)
[2020-04-25] MEDS ORDERED: *HR* Dextrose 50 % in Water (Vial) 50 ML VIAL IVP PRN (21:57)
[2020-04-25] MEDS ORDERED: Dextrose Gel 15 GM/37.5 ML TUBE PO PRN ×2 (21:57)
[2020-04-25] MEDS ORDERED: D5% in Water 1,000 ML IVC PRN (21:57)
[2020-04-26 00:06] LABS: Alanine Aminotransferase 46 Units/L (7-52); Albumin 3.9 g/dL (3.5-5.7); Albumin/Globulin Ratio 1.3 (1.1-2.2); Alkaline Phosphatase 95 Units/L (34-104); Aspartate Amino Transferase 33 Units/L (13-39); BUN/Creatinine Ratio 18 (6-26); Bilirubin,Total 0.3 mg/dL (0.3-1.0); Blood Urea Nitrogen 16 mg/dL (8-23); Calcium 8.6 mg/dL (8.6-10.3); Carbon Dioxide 22 mEq/L (23-29); Chloride 100 mEq/L (98-107); Globulin 3.1 g/dL (2.4-3.5); Glucose 172 mg/dL (70-105); Osmolality,Calculated 285 (280-300); Sodium 135 mEq/L (136-145); eGFR For African Americans > 60 (> 60); eGFR For Non-African Americans > 60 (> 60)
[2020-04-26 00:14] LABS: Basophils % 0.2 %; Hematocrit 38.5 % (35.3-44.9); Hemoglobin 12.6 g/dL (11.5-15.4); Immature Granulocytes % 1.2 % (0-4); Lymphocytes # 0.3 K/mcL (0.6-4.6); Lymphocytes % 5.2 %; Mean Corpuscular HGB Conc 32.7 g/dL (31.6-35.5); Mean Corpuscular Hemoglobin 29.9 pg (28.0-33.3); Mean Corpuscular Volume 91.4 fL (83.0-100.0); Mean Platelet Volume 11.8 fL (9.4-12.4); Monocytes # 0.1 K/mcL (0.0-1.3); Monocytes % 1.4 %; Platelet Count 131 K/mcL (140-400); Red Blood Count 4.21 M/mcL (3.82-4.97); Red Cell Distribution Width 13.9 % (11.5-14.5); White Blood Count 6.5 K/mcL (4.3-11.1)
[2020-04-26 00:31] LABS: Platelet Estimate Normal (Normal)
[2020-04-26] MEDS: *HR* Heparin 5,000 UNIT/ML VIAL SQ SCH ×4 (00:52→22:39)
[2020-04-26] MEDS: Insulin DETEMIR 100 UNIT/ML X5UNITS SQ SCH ×2 (00:52→22:40)
[2020-04-26] MEDS: Insulin LISPRO 300 UNITS/3 ML VIAL SQ SCH ×4 (00:52→16:34)
[2020-04-26 07:38] LABS: Creatine Kinase 97 Units/L (30-223); Lactate Dehydrogenase 174 Units/L (140-271)
[2020-04-26 07:48] LABS: Ferritin 193 ng/mL (10-120)
[2020-04-26] MEDS: Dexamethasone 4 MG/ML VIAL IVP SCH (10:16)
[2020-04-26 11:42] LABS: C-Reactive Protein 48 mg/L (Less than 10)
[2020-04-27 03:53] LABS: Prothrombin Time 11.1 Seconds (9.4-12.1)
[2020-04-27 04:08] LABS: Alanine Aminotransferase 38 Units/L (7-52); Albumin 4.3 g/dL (3.5-5.7); Albumin/Globulin Ratio 1.2 (1.1-2.2); Alkaline Phosphatase 98 Units/L (34-104); Aspartate Amino Transferase 31 Units/L (13-39); BUN/Creatinine Ratio 22 (6-26); Bilirubin,Total 0.4 mg/dL (0.3-1.0); Blood Urea Nitrogen 15 mg/dL (8-23); Calcium 9.6 mg/dL (8.6-10.3); Carbon Dioxide 26 mEq/L (23-29); Chloride 99 mEq/L (98-107); Globulin 3.5 g/dL (2.4-3.5); Glucose 102 mg/dL (70-105); Magnesium 2.2 mg/dL (1.6-2.6); Osmolality,Calculated 281 (280-300); Phosphorous 2.8 mg/dL (2.7-4.5); Potassium 4.3 mEq/L (3.5-5.1); Sodium 135 mEq/L (136-145); Total Protein 7.8 g/dL (6.4-8.9); eGFR For African Americans > 60 (> 60); eGFR For Non-African Americans > 60 (> 60)
[2020-04-27 04:09] LABS: Basophils % 0.2 %; Hematocrit 43.7 % (35.3-44.9); Hemoglobin 13.5 g/dL (11.5-15.4); Immature Granulocytes % 0.3 % (0-4); Lymphocytes # 0.9 K/mcL (0.6-4.6); Lymphocytes % 16.1 %; Mean Corpuscular HGB Conc 30.9 g/dL (31.6-35.5); Mean Corpuscular Hemoglobin 29.2 pg (28.0-33.3); Mean Corpuscular Volume 94.4 fL (83.0-100.0); Mean Platelet Volume 11.9 fL (9.4-12.4); Monocytes # 0.3 K/mcL (0.0-1.3); Monocytes % 5.4 %; Neutrophils # 4.5 K/mcL (1.6-8.9); Platelet Count 153 K/mcL (140-400); Red Blood Count 4.63 M/mcL (3.82-4.97); Red Cell Distribution Width 13.9 % (11.5-14.5); White Blood Count 5.8 K/mcL (4.3-11.1)
[2020-04-27] MEDS ORDERED: *HR* Enoxaparin 40 MG/0.4 ML SYRINGE SQ SCH (06:00)
[2020-04-27] MEDS: Insulin LISPRO 300 UNITS/3 ML VIAL SQ SCH ×2 (08:29→12:27)
[2020-04-27] MEDS: Dexamethasone 4 MG/ML VIAL IVP SCH (08:35)
[2020-04-27] MEDS: GuaiFENesin Liq 200 MG/10 ML UDC PO SCH ×2 (11:04→11:06)
[2020-04-27 12:05] VITALS: BP 106/71
== END 2020-04-27 15:46 | disposition home or self-care (01) | DRG 871 ==
LOC: EMEROOARM 16:49 → 2NENU 16:49 → 3BNU 04-26 19:05
PROVIDERS: ADMIT Student in an Organized Health Care Education/Training Program; ATTEND Student in an Organized Health Care Education/Training Program